=== PATIENT | female | born 1955 | race African-American/Black ===

== ENCOUNTER 2016-05-18 16:21 | Inpatient (IN) ==
[2016-05-18] MEDS ORDERED: SODIUM CHLORIDE 0.45% 1,000 ML IV SCH (18:00)
--- NOTE | 2016-05-18 18:49 | XRay Report ---
Exam: XR KUB Date: 05/18/2016 6:00 PM Indication: Anorexia Comparison: None Technical: 2 views Findings: Lung bases are unremarkable. The liver shadow and spleen shadows are faintly seen with some splenic granuloma changes. Air-fluid distention of the stomach is present. The bony structures are intact no obvious pneumoperitoneum. Metallic density superimposes the right lower quadrant measuring approximately 7.6 mm. The bony pelvis is intact with lateral marginal osteophytes present along the lumbar spine at L4. Impression: 1. Metallic foreign body in the right lower quadrant measuring 7.6 mm 2. Questionable dilated gastric air bubble with food and debris present. If further evaluation is warranted CT scan of the abdomen pelvis with IV and oral contrast may be beneficial. PROCEDURE INTERPRETED AT [facility] DEPARTMENT OF RADIOLOGY Final Report Signed by: Dr. Moses Berger
[2016-05-18 19:46] LABS: Basophils % 0.1 % (0.0-0.8); Hematocrit 36.9 VOL% (35.7-47.0); Hemoglobin 11.8 GM/DL (12.0-16.0); Immature Granulocytes % 0.3 %; Immature Granulocytes Absolute 0.03 #; Lymphocytes # 1.3 10*3/uL (1.4-4.0); Lymphocytes % 12.1 % (21.3-54.2); Mean Corpuscular Hemoglobin 29 PG (27-34); Mean Corpuscular Volume 89.1 FL (87-102); Mean Platelet Volume 10.9 FL (9.6-12.0); Monocytes # 0.7 10*3/uL (0.11-0.8); Neutrophils # 8.4 10*3/uL (1.4-7.4); Neutrophils % 80.5 % (38.7-73.9); Platelet Count 359 T/CUMM (130-400); Red Blood Count 4.14 MC/CUMM (3.8-5.5); White Blood Count 10.5 T/CUMM (4-12)
[2016-05-18 20:05] LABS: Albumin 3.9 G/DL (3.4-5.0); Bilirubin,Total 0.6 MG/DL (0.2-1.0); Calcium 10.3 MG/DL (8.5-10.1); Osmolality,Calculated 281.1 MOS/KG (273-304); Potassium 2.8 MMOL/L (3.5-5.1); Total Protein 8.4 G/DL (6.4-8.3)
--- NOTE | 2016-05-18 20:21 | Internal Med History&Physical ---
Assessment and Plan (1) Anorexia Status: Chronic Current Visit: Yes (2) Weight loss Status: Chronic Current Visit: Yes (3) Nutritional deficiency Status: Chronic Current Visit: Yes (4) Hypokalemia Status: Acute Current Visit: Yes History of Present Illness Chief complaint: weight loss History of present illness: Ms. 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 She didn't like the food changes and stopped eating the food there. She has lost about 25 pounds since then. Her family had her worked up in [facility] for cancer with unremarkable findings. After her nutritional deficiencies are addressed here in hospital, considering sending her to [facility] for help with anorexia. Consulting Dr. Oshea to rule out GI etiologies for weight loss. Also, she may need PEG tube until she recovers her willingness to eat. She prefers liquids at this point. Home Medications Medication Instructions Recorded Confirmed Type Ciprofloxacin Tab [Cipro Tab] 500 mg PO BID #14 tablet 05/15/16 05/18/16 Rx Potassium Chloride Cap/Tab [K Dur] 20 meq PO DAILY #7 tablet 05/15/16 05/18/16 Rx Allergies Allergy/AdvReac Type Severity Reaction Status Date / Time No Known Allergies Allergy Verified 05/15/16 12:59 Medical,Surgical,& Family Hx - Medical History HEENT: History of: Dental Problems (dentures upper and lower) Genitourinary: History of: Recurring Urinary Tract Infections Hematology: History of: Anemia - Surgical History Abdominal Surgeries: Surgical HX of: Colonoscopy (2017), EGD (2017) - Family History Family History: Reports;: Family Diabetes (sister), Family Hypertension (sister) - Social History Smoking Status: Never smoker Frequency of Alcohol Use: None Type of Drug Use: None Functional capacity: independent ambulation - Constitutional Constitutional: Present: anorexia, fatigue, lethargy, weight loss - Gastrointestinal Gastrointestinal: Present: early satiety Exam - Constitutional Vitals: Period Temp Pulse Resp BP Sys/Timmons Pulse Ox Last 24 Hr 98.2 F 129 18 113/77 93 General appearance: no acute distress - Head Head exam: Present: normocephalic - Eye Eye exam: Present: EOMI - Respiratory Respiratory exam: Present: clear to auscultation bilaterally - Cardiovascular Cardiovascular exam: Present: regular rate and rhythm - GI/Abdominal GI/Abdominal exam: Present: soft. Absent: psoas sign - Extremities Exam Extremities exam: Absent: edema - Neurological Exam Neurological exam: Present: alert, oriented X3 - Psychiatric Psychiatric exam: Present: normal mood - Skin Skin exam: Present: warm, dry Results - Labs CBC & BMP: 05/18/16 19:37 05/18/16 19:37 - Diagnostic Findings Procedure: KUB x-ray: report reviewed by me
[2016-05-18] MEDS: CYPROHEPTADINE 4 MG TABLET PO SCH (20:22)
[2016-05-18] MEDS ORDERED: PROMETHAZINE 25 MG/1 ML VIAL IM PRN (23:36)
[2016-05-19] MEDS: ONDANSETRON 4 MG/2 ML VIAL IV PRN ×2 (00:08→10:09)
[2016-05-19] MEDS: POTASSIUM CHLORIDE 20 MEQ TABLET PO SCH ×2 (02:48→08:39)
[2016-05-19] MEDS: SODIUM CHLORIDE 0.9% 1,000 ML IV SCH ×3 (03:03→23:18)
--- NOTE | 2016-05-19 07:15 | CT Report ---
CT of the abdomen and pelvis with intravenous and oral contrast. Indication: Anorexia. Weight loss. 60 cc Omni 350. Axial images were obtained with sagittal and coronal reconstructions. No previous studies. The heart is normal in size. The lung bases are clear. There is no pericardial or pleural effusion. The liver is low normal in size. There is fluid around the liver. There is prominent intrahepatic biliary ductal dilatation. The common hepatic duct diameter is 16 mm. Around the gallbladder, there are indistinct areas of low density. The gallbladder is not distended. The stomach is markedly distended, containing fluid, semisolid, and solid material. It extends to the pelvis, and has a craniocaudal dimension of 30 cm and a transverse dimension of 21 cm. There is no gastric wall thickening. The stomach exerts mass effect on the liver, the spleen, and the left kidney. The spleen is small. The kidneys are normally functioning and there is no hydronephrosis. The pancreas is compressed by the stomach. It is not enlarged. It appears that the first0, with relatively abrupt transition to nondistended5 the loops of small intestine are not dilated. The colon is not dilated. It contains scattered fecal material. There is a small amount of free fluid within the pelvis. The pelvic organs are relatively unremarkable. No adenopathy is seen. The abdominal aorta is of normal caliber, with mild scattered plaque in its wall. The duodenum does narrow at the level of the crossing of the SMA. Osseous structures are unremarkable. Impression: 1. Marked distention of the stomach and moderately severe distention of the first and second portions of the duodenum with an abrupt transition involving the junction of the second and third portions of the duodenum. No definite wall thickening of the duodenum is seen at this level. The amount of gastric distention is severe. Considerations would include duodenal obstruction from intrinsic mass not defined on the CT, scarring of the duodenum, or SMA syndrome. 2. Moderately severe biliary ductal dilatation. There is edema around the wall of the gallbladder which is not distended. Cholecystitis cannot be excluded. The presence of a distal biliary obstructing mass cannot be excluded. 3. Small amount of ascites. The CT exam was performed using one or more of the following dose reduction techniques: Automated exposure control, adjustment of the mA and/or kV according to patient size, or use of iterative reconstruction technique. PROCEDURE INTERPRETED AT [facility] DEPARTMENT OF RADIOLOGY Final Report Signed by: Dr. Marley Harris
[2016-05-19] MEDS ORDERED: BISACODYL 5 MG TABLET PO ONE (08:06)
[2016-05-19] MEDS: CYPROHEPTADINE 4 MG TABLET PO SCH ×2 (08:39→22:18)
[2016-05-19] MEDS: FERROUS SULFATE 325 MG TABLET PO SCH ×2 (08:39→22:17)
[2016-05-19] MEDS ORDERED: PANTOPRAZOLE 40 MG TABLET PO SCH (09:00)
--- NOTE | 2016-05-19 10:18 | Gastrointestinal Consult Note ---
Assessment and Plan (1) Weight loss Status: Chronic Assessment and plan: 05/19- pd weight loss over past several months with loss of appetite, abd bloating, GERD symptoms. Recent workup at [facility]. CT of abdomen findings noted. Obtain records from [facility] for recent endoscopy. Plan and addendum to follow by Dr Oshea. Current Visit: Yes History of Present Illness Chief complaint: Weight loss History of present illness: Ms. Schneider is a 61 year old female who presented to the clinic to see Dr Negron for continued weight loss. Pt states that she began losing weight back in the fall of last year. She initially states her appetite slowly decreased and she just didnt have the desire to eat. She states that in January she also got a stomach virus and states this worsened her weight loss. Pt states that when she tries to eat she feels like it "wont go down". She denies any dysphagia or odonyphagia with this. States she is able to swallow pills, liquids and solids without any difficulty however after she eats several bites she feels full and bloated. She states that she has had no melena, hematochezia, nausea or vomitnig. She denies any other recent illnesses. She denies family history of colon cancer. She denies abdominal pain. She does report that she has some dyspepsia with eating including feeling of "acid" in the back of her throat and bloating when she eats. She states she was seen in [place] for an EGD and recently at [facility] by Dr Moise for endoscopy work up. We will obtain these records from [facility] for further review. CT of abdomen noted with marked distention of stomach with severe distention of first and second portions of duodenum, abrupt transition at junction of second and third portions duodenum, severe gastric distention, biliary ductal dilation, gallbladder edema. BUN/Cr ratio 41, calcium 10.3, potassium 2.8. Home Medications Medication Instructions Recorded Confirmed Type Ciprofloxacin Tab [Cipro Tab] 500 mg PO BID #14 tablet 05/15/16 05/18/16 Rx Potassium Chloride Cap/Tab [K Dur] 20 meq PO DAILY #7 tablet 05/15/16 05/18/16 Rx Allergies Allergy/AdvReac Type Severity Reaction Status Date / Time No Known Allergies Allergy Verified 05/15/16 12:59 Medical,Surgical,& Family Hx - Medical History HEENT: History of: Dental Problems (dentures upper and lower) Genitourinary: History of: Recurring Urinary Tract Infections Hematology: History of: Anemia - Surgical History Abdominal Surgeries: Surgical HX of: Colonoscopy (2017), EGD (2017) - Family History Family History: Reports;: Family Diabetes (sister), Family Hypertension (sister) - Social History Smoking Status: Never smoker Frequency of Alcohol Use: None Type of Drug Use: None 12 point system: reviewed and no additional remarkable complaints except as stated - Constitutional Constitutional: Present: as per HPI, anorexia, weight loss - EENT Eyes: Present: as per HPI Ears: Present: as per HPI Nose, mouth and throat: Present: as per HPI - Cardiovascular Cardiovascular: Present: as per HPI - Respiratory Respiratory: Present: as per HPI - Gastrointestinal Gastrointestinal: Present: as per HPI, bloating, dyspepsia, heartburn - Genitourinary Genitourinary: Present: as per HPI - Musculoskeletal Musculoskeletal: Present: as per HPI - Neurological Neurological: Present: as per HPI - Psychiatric Psychiatric: Present: as per HPI - Endocrine Endocrine: Present: as per HPI - Hematologic/Lymphatic Hematologic/Lymphatic: Present: as per HPI Exam - Constitutional Vitals: Period Temp Pulse Resp BP Sys/Timmons Pulse Ox Last 24 Hr 96.8 F-98.2 F 94-129 18-20 113-138/68-84 93-98 General appearance: no acute distress, under weight - Head Head exam: Present: normal inspection, normocephalic - Eye Eye exam: Present: other (lids and conjunctiva). Absent: scleral icterus - ENT ENT exam: Present: normal exam, normal oropharynx - Neck Neck exam: Present: normal inspection - Respiratory Respiratory exam: Present: clear to auscultation bilaterally. Absent: rales, rhonchi, wheezes - Cardiovascular Cardiovascular exam: Present: regular rate and rhythm. Absent: diastolic murmur , JVD, systolic murmur - GI/Abdominal GI/Abdominal exam: Present: normal bowel sounds, soft. Absent: ascites, distended, mass, organomegaly, tenderness - Extremities Exam Extremities exam: Present: normal inspection, full ROM - Back Exam Back exam: Present: normal inspection - Neurological Exam Neurological exam: Present: alert, oriented X3 - Psychiatric Psychiatric exam: Present: normal affect, normal mood - Skin Skin exam: Present: normal color, warm, dry Results - Labs CBC & BMP: 05/18/16 19:37 05/18/16 19:37 Lab Results: I have reviewed the past 24 hour labs - Diagnostic Findings Procedure: KUB x-ray: report reviewed by me, CT Abdomen and Pelvis: report reviewed by me
[2016-05-19] MEDS: POTASSIUM CHLORIDE RIDER 10 MEQ in PREMIX 1 EACH IV PRN ×5 (11:15→15:25)
--- NOTE | 2016-05-19 13:16 | General Surgery Consult Note ---
Assessment and Plan - Time spent with patient Time spent with patient: Greater than 30 minutes (1) Duodenal obstruction Status: Acute Assessment and plan: This does not appear to be acute and appears to be more of a subacute or chronic finding. The etiology of this is unclear. Possibilities of been raised on CT scan by radiology as being from SMA syndrome or tumor wall mass is not noted on CT scan. She did have endoscopy with negative biopsies. Certainly malignancy is still a consideration especially in light of her extensive weight loss. Peptic ulcer disease with scarring causing a stricture in this location would also be a possibility that this is a bit distal to where I would expect this to occur. This is more proximal than I would expect for SMA syndrome. I feel that she will need surgery to address this problem. Her stomach is massively distended and I'm going to place a nasogastric tube. We need to get her stomach empty and it would be unsafe to give anesthesia with her stomach so full. She is certainly going to be at risk for postoperative gastric atony. We probably will not be able to establish whether this is benign or malignant and less she has elevated tumor markers preoperatively. I would anticipate being able to do surgery in the next couple of days after we decompressed her stomach. I will leave it up to Dr. Cedeño regarding upper endoscopy. Apparently she recently had endoscopy about a month ago at [facility]. Current Visit: Yes History of Present Illness Chief complaint: weight loss History of present illness: Ms. Schneider is a 61 year old female Who for the last 3-4 months has had progressive weight loss and has become cachectic. She has minimal mild poorly localized abdominal pain. She does not know of any aggravating or alleviating factors. She has nausea and vomiting occasionally. She has an inability to eat and has been avoiding food because of worry about nausea and vomiting. She is undergone a workup at [facility] which is included upper and lower endoscopy. Upper endoscopy apparently showed a narrowing at the junction of second and third portion of the duodenum and biopsies were taken which were benign. I did review her records from [facility] that we have obtained. She had a CT scan at our hospital which shows massive dilatation of the stomach and first portion of the duodenum and a transition point at the C-loop of the duodenum. Home Medications Medication Instructions Recorded Confirmed Type Ciprofloxacin Tab [Cipro Tab] 500 mg PO BID #14 tablet 05/15/16 05/18/16 Rx Potassium Chloride Cap/Tab [K Dur] 20 meq PO DAILY #7 tablet 05/15/16 05/18/16 Rx Allergies Allergy/AdvReac Type Severity Reaction Status Date / Time No Known Allergies Allergy Verified 05/15/16 12:59 Medical,Surgical,& Family Hx - Medical History HEENT: History of: Dental Problems (dentures upper and lower) Genitourinary: History of: Recurring Urinary Tract Infections Hematology: History of: Anemia - Surgical History Abdominal Surgeries: Surgical HX of: Colonoscopy (2017), EGD (2017) - Family History Family History: Reports;: Family Diabetes (sister), Family Hypertension (sister) - Social History Smoking Status: Never smoker Frequency of Alcohol Use: None Type of Drug Use: None - Constitutional Constitutional: Present: anorexia, weight loss. Absent: chills, fever(s) - EENT Nose, mouth and throat: Absent: dysphagia - Cardiovascular Cardiovascular: Absent: chest pain at rest, chest pain with activity, dyspnea, dyspnea on exertion, syncope - Respiratory Respiratory: Absent: cough, dyspnea, hemoptysis, dyspnea on exertion - Gastrointestinal Gastrointestinal: Present: abdominal pain, bloating, nausea, vomiting. Absent: cramping, diarrhea, heartburn, hematemesis, hematochezia, jaundice - Genitourinary Genitourinary: Absent: hematuria - Musculoskeletal Musculoskeletal: Absent: back pain - Neurological Neurological: Absent: focal weakness, syncope - Endocrine Endocrine: Absent: polyuria Hematologic/Lymphatic: Absent: easy bruising Exam - Constitutional Vitals: Period Temp Pulse Resp BP Sys/Timmons Pulse Ox Last 24 Hr 96.8 F-98.2 F 94-129 18-20 109-138/58-84 93-100 General appearance: no acute distress, cachectic - Head Head exam: Present: normocephalic - Eye Eye exam: Absent: scleral icterus - ENT Mouth exam: Present: normal voice - Neck Neck exam: Present: trachea midline. Absent: lymphadenopathy, tenderness, thyromegaly - Respiratory Respiratory exam: Present: clear to auscultation bilaterally. Absent: accessory muscle use - Cardiovascular Cardiovascular exam: Present: RRR - GI/Abdominal GI/Abdominal exam: Present: normal bowel sounds, distended, firm, soft. Absent : ascites, guarding, mass, Akins's sign, tenderness, rebound - Extremities Exam Extremities exam: Absent: edema - Back Exam Back exam: Present: normal inspection. Absent: vertebral tenderness - Neurological Exam Neurological exam: Present: alert, oriented X3. Absent: motor sensory deficit Speech: Present: normal - Skin Skin exam: Present: normal color Results - Labs CBC & BMP: 05/18/16 19:37 05/18/16 19:37 Lab Results: I have reviewed the past 24 hour labs - Diagnostic Findings Procedure: CT Abdomen and Pelvis: image reviewed by me, report reviewed by me
--- NOTE | 2016-05-19 20:19 | Internal Med Progress Note ---
Assessment and Plan (1) Anorexia Status: Chronic Current Visit: Yes (2) Weight loss Status: Chronic Current Visit: Yes (3) Nutritional deficiency Status: Chronic Current Visit: Yes (4) Hypokalemia Status: Acute Current Visit: Yes (5) Duodenal obstruction Status: Chronic Current Visit: Yes Internal Medicine - PN: Subj Interval history: Ms. 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 She didn't like the food changes and stopped eating the food there. She has lost about 25 pounds since then. Her family had her worked up in [place] for cancer with uncertain findings. Requested records during clinic visit at [facility]. She came to clinic to [facility] in late April, then came back Wednesday of this week. She was admitted directly to hospital. She had lost five pounds in only a couple weeks. Had ordered KUB with suspicious findings, then ordered CT abdomen/pelvis. CT indicated duodenal obstruction, and Dr. Luis A III was consulted to further evaluate. She was placed on NG tube to wall suction and was feeling better when seen on rounds. Have ordered PICC line placement for TPN. She needs nutritional support. Rocephin started this evening to give coverage until surgical exploration can take place. This patient's history is unclear. She reported in clinic that workup in [facility] was unremarkable, and nothing found, except difficulty passing colonoscope beyond hepatic flexure, and colonoscopy discontinued. She also reported that she avoided certain foods because of gas, but denied acid indigestion. She said in clinic she could eat solids, but preferred liquids, and labs in clinic were surprisingly better than expected. Family with her in clinic reported that she was always a "picky" eater, and her normal weight for years was about 115 pounds. She came across as willfully anorexic to some extent. However, after receiving results of current CT, this case is surgical. She reports the trouble began when the menu changed in the school cafeteria during summer school last summer. This may have been coincidence. CT findings indicate a chronic problem. CT also indicates gallbladder disease. Unclear why this wasn't seen in previous workup. Optimistic that with surgery, this patient stands a chance. She has no other chronic illnesses. Sinus tachycardia likely a symptom of underlying bowel obstruction as indicated by CT. Also, she came in dehydrated. Metoprolol tartrate started tonight. Exam (Progress Note) - Constitutional Vitals: Period Temp Pulse Resp BP Sys/Timmons Pulse Ox Last 24 Hr 96.8 F-97.9 F 94-125 18-20 109-132/58-78 95-100 General appearance: no acute distress (appears more comfortable since NG tube suction started), under weight, cachectic - Respiratory Respiratory exam: Present: clear to auscultation bilaterally. Absent: rales, rhonchi, wheezes - Cardiovascular Cardiovascular exam: Present: tachycardia - GI/Abdominal GI/Abdominal exam: Present: other (improved abdominal softness with decompression (NG tube suction)) - Extremities Exam Extremities exam: Absent: edema - Neurological Exam Neurological exam: Present: alert, oriented X3 - Psychiatric Psychiatric exam: Present: normal mood - Skin Skin exam: Present: warm, dry Results - Labs CBC & BMP: 05/18/16 19:37 05/19/16 19:04 - EKG EKG shows: tachycardia - Diagnostic Findings Procedure: KUB x-ray: report reviewed by me, CT Abdomen and Pelvis: report reviewed by me (duodenal obstruction)
[2016-05-19] MEDS: cefTRIAXone 1,000 MG in SODIUM CHLORIDE 0.9% 100 ML IV SCH (23:10)
[2016-05-20] MEDS ORDERED: METOPROLOL TARTRATE 5 MG/5 ML VIAL IV PRN (01:03)
[2016-05-20 02:31] LABS: Basophils % 0.1 % (0.0-0.8); Hematocrit 35.9 VOL% (35.7-47.0); Hemoglobin 11.1 GM/DL (12.0-16.0); Immature Granulocytes % 1.2 %; Immature Granulocytes Absolute 0.19 #; Lymphocytes # 0.4 10*3/uL (1.4-4.0); Lymphocytes % 2.2 % (21.3-54.2); Mean Corpuscular HGB Conc 30.9 GM/DL (32-36); Mean Corpuscular Hemoglobin 29 PG (27-34); Mean Corpuscular Volume 93.2 FL (87-102); Mean Platelet Volume 11.8 FL (9.6-12.0); Monocytes # 0.9 10*3/uL (0.11-0.8); Monocytes % 5.4 % (1.7-12.7); Neutrophils # 14.3 10*3/uL (1.4-7.4); Neutrophils % 91.1 % (38.7-73.9); Platelet Count 213 T/CUMM (130-400); Red Blood Count 3.85 MC/CUMM (3.8-5.5); Red Cell Distribution Width 17.4 % (9.3-17.3); White Blood Count 15.7 T/CUMM (4-12)
[2016-05-20 02:34] LABS: Calcium 8.8 MG/DL (8.5-10.1); Magnesium 2.1 MG/DL (1.8-2.4); Osmolality,Calculated 294.3 MOS/KG (273-304); Potassium 3.6 MMOL/L (3.5-5.1)
[2016-05-20 03:42] LABS: Lymphocytes 3 % (20-55); Segmented Neutrophils 95 % (50-85)
[2016-05-20 03:43] LABS: Platelet Estimate Adequate; Target Cells Few
[2016-05-20] MEDS ORDERED: METOPROLOL TARTRATE 5 MG/5 ML VIAL IV SCH (06:00)
[2016-05-20] MEDS: SODIUM CHLORIDE 0.9% 1,000 ML IV SCH ×2 (06:06→16:47)
[2016-05-20] MEDS: PANTOPRAZOLE 40 MG VIAL IV SCH (08:42)
[2016-05-20] MEDS ORDERED: GLUCAGON 1 MG VIAL IM PRN (08:44)
[2016-05-20] MEDS ORDERED: DEXTROSE 50% 25 GM/50 ML VIAL IV PRN (08:44)
--- NOTE | 2016-05-20 08:45 | Event Note ---
She feels much better since the NG tube was placed. I have discussed surgery once again today. I discussed her case with Dr. Negron and also with Dr. Cedeño. All agree that surgery would be needed to relieve her obstruction. Her CA-19-9 has returned elevated and probably represents a malignancy which is unresectable. This is consistent with her 40 pound weight loss. I discussed the surgery in detail along with the risks with her and her family. They are considering this this morning. I will go ahead and put her on the schedule for this afternoon. They understand that she is at increased risk for complications because of what is probably an underlying malignancy and severe underlying malnutrition and deconditioning. I do not see a good option other than surgical bypass her GI obstruction. I did explain if we did see a tumor that appeared to be resectable then we could possibly undertake that at this time. They understand that the primary role of surgery is to relieve her obstruction and palliate her symptoms and get her back where she can eat. We might place a feeding tube is well.
--- NOTE | 2016-05-20 09:17 | Oncology Consult Note ---
History of Present Illness History of present illness: Ms. Schneider is a 61 year old female admitted with what appears to be a fairly extensive GI malignancy. She is not a very good historian. I discussed her case with Dr. Negron. Dr. Luis A Jean has been consulted. She has had prolonged anorexia. She is emaciated and cachectic. She has a sister Tanisha Wolfes node and ascites. She is not particularly tender. I have discussed her case with Dr. Luis A Jean. He is proceeding with a diagnostic laparoscopy/laparotomy. The patient is very sick and not a good historian because she is emaciated, cachectic and debilitated. Past medical history: Allergies: No known allergies Social history: She does not use alcohol or tobacco Family history of malignancy is unknown ROS please note that this patient is a poor historian and some of this information could be an accurate. Gen.: She has been chronically ill for the last 6 months with anorexia and has gradually worsened. Eyes: No history of chronic disease, infections or visual loss. ENT: No history of chronic infections, epistaxis, chronic sore throat Lungs: No history of asthma, emphysema, hemoptysis, chronic pleurisy or long- term or chronic infections Cardiovascular: No history of angina, coronary artery disease, congestive heart failure, cardiovascular surgery or DVT/VTE GI: Increasing anorexia and weight loss without abdominal pain and without jaundice. : No history of icteric urine no history of kidney stones, chronic kidney infections or hematuria. Musculoskeletal: No history of chronic bone or joint pain or focal muscle atrophy or bone or joint deformity. Neurologic: No history of seizures, convulsions or paralysis. Psychiatric: No history of chronic psychiatric illness or psychiatric medications. Lymphatic: No history of significant or long-term lymphadenopathy Hematologic: No history of anemia, bleeding disorders or blood dyscrasias or long-term elevation or depression white cell count or petechiae. Skin: No history of chronic skin infections or rashes or significant skin lesions. Physical examination: General: The patient is emaciated, cachectic and malnourished with temporal muscle wasting. Eyes: Her eyes are sunken she has normal lids and conjunctivae and there is no icterus. ENT: Her teeth are in poor repair. Her oral mucosa and pharynx are normal. Neck: Her trachea is midline. Her hearing is normal and she has no neck masses. Lungs: Breath sounds are slightly coarse without rubs, rales or rhonchi. Her chest moves symmetrically with respiration. Cardiovascular: Her heart rhythm is regular without murmur, gallop or rub. There is no jugular venous distention, clubbing, cyanosis or edema. Abdomen: There are no discrete abdominal masses but her abdomen is distended and she appears to have ascites. There is no significant tenderness however. Musculoskeletal: She has generalized muscle wasting. There is no focal muscle atrophy or bone or joint deformity. Neuro Neurologic: Cranial nerves II through XII are intact. There are no obvious focal neurologic deficits. Nodes: I palpate no cervical, supraclavicular, axillary or submandibular adenopathy. Skin: I find no significant skin lesions although she has lost the leg and use on her nails. The patient's CBC includes a hemoglobin of 11.1 with a white cell count 15,700 with an absolute neutrophil count of 14,300. Her platelet count is 213,000. Her CEA level is 6.5 and her CA-19-9 is 949.7. Her comprehensive metabolic profile includes a serum calcium of 10.3 with a normal serum albumin of 3.9. Her transaminases and alkaline phosphatase are normal. I suspect the patient has an abdominal malignancy of some type. On reviewing her CT of the abdomen, there is suggestion of an upper abdominal mass-effect. The CT is read by radiology as demonstrating distention of the stomach and moderately severe distention of the first and second portions of the duodenum along with severe biliary ductal dilatation and changes suggestive of duodenal obstruction. 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 See the operative report for details. Pathology is pending. Home Medications Medication Instructions Recorded Confirmed Type Ciprofloxacin Tab [Cipro Tab] 500 mg PO BID #14 tablet 05/15/16 05/18/16 Rx Potassium Chloride Cap/Tab [K Dur] 20 meq PO DAILY #7 tablet 05/15/16 05/18/16 Rx Allergies Allergy/AdvReac Type Severity Reaction Status Date / Time No Known Allergies Allergy Verified 05/15/16 12:59 Medical,Surgical,& Family Hx - Medical History HEENT: History of: Dental Problems (dentures upper and lower) Genitourinary: History of: Recurring Urinary Tract Infections Hematology: History of: Anemia - Surgical History Abdominal Surgeries: Surgical HX of: Colonoscopy (2017), EGD (2017) - Family History Family History: Reports;: Family Diabetes (sister), Family Hypertension (sister) - Social History Smoking Status: Never smoker Frequency of Alcohol Use: None Type of Drug Use: None Exam - Constitutional Vitals: Period Temp Pulse Resp BP Sys/Timmons Pulse Ox Last 24 Hr 97.2 F-99 F 117-128 18-20 109-126/58-74 95-100 Results - Labs CBC & BMP: 05/20/16 16:00 05/20/16 01:23 Quality Measures - VTE Contraindication to Pharmacological VTE Prophylaxis: High Risk of Bleeding
[2016-05-20] MEDS ORDERED: LACTATED RINGERS 1,000 ML IV SCH (09:30)
--- NOTE | 2016-05-20 09:37 | Gastrointestinal Progress Note ---
Assessment and Plan (1) Weight loss Status: Chronic Assessment and plan: 05/20-NG tube placed with moderate output. Endoscopy reports from [place] noted. Luis A has consulted and tentative exp lap this afternoon. Plan and addendum to follow by Dr Oshea. /-25 pd weight loss over past several months with loss of appetite, abd bloating, GERD symptoms. Recent workup at [place] and [facility]. CT of abdomen findings noted. Obtain records from [place] for recent endoscopy. Plan and addendum to follow by Dr Oshea. Current Visit: Yes Gastroenterology - PN: Subj Interval history: CC: Weight loss Patient is seen awake and alert sitting up in bed with family at side. Patient states she had an uneventful night. She does verbalize some relief after NG tube placement with moderate output noted. Dr. Bryan is consulted with patient as well as Dr. Gunn. Pt endoscopy records noted from [place] with last EGD in February with negative pathology with narrowing at duodenum and incomplete colonoscopy. Tentatively patient will go later today for exploratory surgery. Abdomen is soft, nontender. ROS: Denies SOB or chest pain Exam (Progress Note) - Constitutional Vitals: Period Temp Pulse Resp BP Sys/Timmons Pulse Ox Last 24 Hr 97.2 F-99 F 117-128 18-20 109-126/58-74 95-100 General appearance: normal weight, no acute distress - Head Head exam: Present: normal inspection, normocephalic - Eye Eye exam: Present: other (Lids and conjunctivae unremarkable). Absent: scleral icterus - ENT ENT exam: Present: normal exam, normal oropharynx - Neck Neck exam: Present: normal inspection - Respiratory Respiratory exam: Present: clear to auscultation bilaterally. Absent: rales, rhonchi, wheezes - Cardiovascular Cardiovascular exam: Present: regular rate and rhythm. Absent: diastolic murmur , JVD, systolic murmur - GI/Abdominal GI/Abdominal exam: Present: normal bowel sounds, distended, soft. Absent: ascites, mass, organomegaly, tenderness - Extremities Exam Extremities exam: Present: normal inspection, full ROM - Back Exam Back exam: Present: normal inspection - Neurological Exam Neurological exam: Present: alert, oriented X3 - Psychiatric Psychiatric exam: Present: normal affect, normal mood - Skin Skin exam: Present: normal color, warm, dry Results - Labs CBC & BMP: 04/05/17 01:23 05/20/16 01:23 Lab Results: I have reviewed the past 24 hour labs
--- NOTE | 2016-05-20 09:40 | Physician Query Form ---
CLICK EDIT DOCUMENT TO SELECT QUERY ANSWER --> OK --> SIGN Rosario Stafford RN Clinical Gizzard Peeler W) [phone] (f) [phone] [email or web address] PROVIDERS: Make your selection(s) from the choices in EACH section by typing an "x" and enter comments in the comment section. Please use your independent medical judgment in providing your response. This request does not imply that any particular answer is desired or expected. CLINICAL INDICATORS: (Providers should not edit this section) Height: 5ft 2in Weight: 84 lbs Anesthesiologist Physician BMI: 15.4 Air Battle Manager notes:Loss of subcutaneous fat. Loss of muscle massTemporal and clavicular wasting noted. Other clinical notes: chronic anorexia. Based on the above, which following choice most accurately represents the patient's nutritional status? (x ) Malnutrition ( ) mild ( ) moderate (x ) severe ( x) Protein calorie malnutrition ( ) mild ( ) moderate (x ) severe (x ) Emaciation due to malnutrition ( ) Nutritional marasmus ( x) Cachexia ( ) Underweight ( ) No nutritional deficiency ( ) Other, please specify: ( ) Clinically unable to determine Mild Malnutrition (BMI < 18.5, % Normal Body Weight 85-95%) Moderate Malnutrition (BMI < 17, % Normal Body Weight 75-85%) Severe Malnutrition (BMI < 16, % Normal Body Weight < 75%) Source: Callie COMMENTS: Use of terms such as suspected, likely, or probable (associated with a specific diagnosis that is being evaluated, monitored, or treated as if it exists) are acceptable and can be restated in the discharge summary if not ruled out. MTDD
--- NOTE | 2016-05-20 09:49 | EKG Report ---
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
[2016-05-20] MEDS: AMIODARONE 200 MG TABLET PO SCH ×2 (10:39→21:30)
[2016-05-20] MEDS: metroNIDAZOLE INJ 500 MG in PREMIX 1 EACH IV SCH ×2 (10:39→17:37)
[2016-05-20] MEDS: METOPROLOL TARTRATE 5 MG/5 ML VIAL IV SCH ×4 (10:39→21:32)
[2016-05-20] MEDS ORDERED: ceFAZolin 1,000 MG VIAL ONE (13:00)
[2016-05-20] MEDS ORDERED: TISSUE ADHESIVE 1 EACH APPLICATOR TOP ONE (15:21)
[2016-05-20 15:24] LABS: ABG Base Excess 3.2 MMOL/L (-2.5-2.5); ABG HCO3 27.3 MMOL/L (20-26); ABG PCO2 33.9 MM HG (35-48); ABG PH 7.499 (7.35-7.45); ABG TCO2 24.5 MMOL/L (23-27); Glucose Heart Surgery 98 MG/DL (74-106); Hematocrit Heart Surgery 24.8 PERCENT (37-47); Potassium Heart/CVR 2.9 MMOL/L (3.5-5.1)
--- NOTE | 2016-05-20 15:40 | Operative Note ---
Date of procedure: 05/20/16 Pre-op diagnosis: duodenal obstruction Post-op diagnosis: same (widely metastatic cancer of unknown primary) Procedure: #1 partial gastric resection of mid body of stomach removing necrotic portion 3 x 5 cm #2 stapled gastrojejunostomy #3 loop colostomy at hepatic flexure #4 Debbie gastrostomy Findings and technique: After informed consent was obtained and extensive discussions had with the patient and her family about the need for palliative surgery and the fact that she likely had unresectable cancer. They elected to go ahead with surgery with palliation as the primary goal. Patient was brought to the operating room and a central line was placed by anesthesia. The patient' s abdomen was then prepped and draped in usual sterile fashion after induction with general anesthesia. The abdomen was opened through a midline incision and the patient was noted to have an ischemic appearing stomach just beneath the incision and the stomach was distended about the size of a basketball. Stomach displaced the liver to the right and extended to well below the umbilicus. There was an area of necrosis of the stomach that was only able to be visualized after I decompressed the stomach with a small scab gastrostomy and insertion of the suction cannula. I removed 2 L of liquid from the stomach and was able to then visualize the stomach see that there was a 3 x 5 cm area of necrosis in the left upper quadrant over the anterior aspect of the stomach. This had not perforated. I then explored the rest of the abdomen where there was prostatic implants in multiple locations all over small bowel and colon and over the mesenteric and peritoneal surfaces. There was a bulky mass at the mid transverse colon which appeared to be obstructive. There was an obstruction at the midportion of the duodenum. It was unclear if this tumor came from the pancreas or from the colon. I biopsied one of the metastatic implants and this showed poorly differentiated adenocarcinoma. The primary site was unclear. I did not feel that bypassing her duodenal obstruction would be worthwhile if we did not address the colonic obstruction. I wanted to limit the amount of resection in this patient with limited life expectancy. I elected to place a right upper quadrant colostomy and I mobilized the hepatic flexure. The colon was not mobile in the left upper quadrant or in the midline. The right colon was somewhat mobile so that I could bring it up to the anterior abdominal wall were circular incision was made in the defect made through the fascia in the right upper quadrant. I performed a partial resection of the anterior aspect of the stomach where it was necrotic. This was secured in [place] and a TA 90 stapler passed beneath the necrotic area wedging out the unhealthy appearing stomach. The remainder of the stomach once it was decompressed appeared to be viable. I then did a stapled gastrojejunostomy along the greater curve of the stomach. The stomach had a healthy appearance in this location. This was done in a side to side fashion with a SAIRA stapling device and TA stapler to close the openings in the ends of the bowel. This was reinforced with a few Lembert sutures. I then placed a gastrostomy tube because the large size of the stomach that we would want to keep decompressed. I anticipate gastric atony postoperatively. This will also make her more comfortable and we can get her nasogastric tube out this was done with a 20 Luxembourgish tube brought in through a left upper quadrant stab incision and introduced into the mid body of the stomach and since secured with a pursestring suture. This was secured to the skin as well. The midline wound was closed with a running #1 PDS suture after he didn't additional biopsy for permanent sections and midline fascia and skin closed. The colostomy was matured to the skin. Obviously her prognosis is extremely poor. I did call her family intraoperatively with the findings and to get permission to go ahead and do the colostomy which I felt was necessary to palliate her symptoms. Anesthesia: GETA Surgeon / Physician: Kayden Gunn III. Estimated blood loss: minimal Specimens: other (metastatic implants) Condition: stable Disposition: ICU Results - Labs CBC & BMP: 05/20/16 01:23 05/20/16 01:23 Discharge Plan - Discharge Medications No Action Potassium Chloride Cap/Tab [K Dur] 20 meq PO DAILY #7 tablet Ciprofloxacin Tab [Cipro Tab] 500 mg PO BID #14 tablet - Follow Up or Referral - Forms/Instructions
[2016-05-20] MEDS ORDERED: PROPOFOL 1,000 MG/100 ML BOTTLE IV ONE (15:41)
[2016-05-20 15:55] LABS: Amorphous Crystals,Urine Occasional /HPF (Few); Apearance,Urine CLOUDY (Clear); Bacteria,Urine Occasional /HPF (Few); Bilirubin,Urine Negative (Negative); Blood, Urine Small mg/dL (Negative); Glucose,Urine (UA) Negative (Negative); Ketones,Urine 20 mg/dL (Negative); Mucus,Urine Occasional /LPF (Occasional); Nitrite,Urine Negative (Negative); Protein,Urine 30 MG/DL; RBC,Urine 1 /HPF (0-4); Squamous Epithelial Cell,Urine Occasional /HPF (0-10); Urine Color Yellow (Yellow); Urine Specific Gravity 1.027 (1.001-1.035); Urine Urobilinogen < 2.0 EU/DL (0.2-1.0); WBC,Urine 3 /HPF (0-6)
--- NOTE | 2016-05-20 15:55 | Anesthesia ---
Anesthesia Post OP - Post Ansesthetic Evaluation Patient seen in post op: Yes Resp: within normal limits (pt remains ventilated) CV: within normal limits Mental: within normal limits (pt remains sedate) Temp: within normal limits Mcso-Ln-Luhwfjrun: within normal limits Nausea and Vomiting: within normal limits Pain: within normal limits
[2016-05-20] MEDS ORDERED: PHENYLEPHRINE DRIP 40 MG/250 ML PREMIX IV ONE (15:56)
[2016-05-20] MEDS ORDERED: fentaNYL 100 MCG/2 ML VIAL ONE (15:58)
[2016-05-20] MEDS ORDERED: SEVOFLURANE 1 UNIT/15 MINUTE INH ONE (15:58)
[2016-05-20] MEDS ORDERED: ALBUMIN 5% 12.5 GM/250 ML VIAL IV ONE (15:58)
[2016-05-20] MEDS ORDERED: LACTATED RINGERS 2,000 ML IV ONE (15:59)
[2016-05-20] MEDS ORDERED: SODIUM CHLORIDE 0.9% 1,000 ML IV ONE (15:59)
[2016-05-20] MEDS ORDERED: MIDAZOLAM 2 MG/2 ML VIAL ONE (15:59)
[2016-05-20] MEDS ORDERED: SODIUM CHLORIDE 0.9% 100 ML IV ONE (15:59)
[2016-05-20 16:11] LABS: ABG Base Excess 3.1 MMOL/L (-2.5-2.5); ABG HCO3 24.5 MMOL/L (20-26); ABG Oxygen Saturation 99.2 % (95-100); ABG PCO2 26.9 MM HG (35-48); ABG PH 7.578 (7.35-7.45); ABG PO2 283.7 MM HG (80-95); ABG TCO2 25.4 MMOL/L (23-27)
[2016-05-20 16:13] LABS: Hematocrit 27.7 VOL% (35.7-47.0); Hemoglobin 8.8 GM/DL (12.0-16.0)
--- NOTE | 2016-05-20 16:17 | XRay Report ---
XR chest 1V portable Indication: SOB Comparison: None Technique: Single frontal view of the chest Findings: Right-sided central venous catheter tip projects over the mid right atrium. The endotracheal tube tip approaches the mary. Recommend retraction by 2 to 3 cm. Mild elevation of the left hemidiaphragm. Chronic change of the lungs present. No focal consolidation, pleural effusion, or pneumothorax. Osseous and surrounding soft tissue structures demonstrate no acute abnormality. Nonaggressive appearing sclerotic lesion within the medial proximal humeral metaphysis. IMPRESSION: As above. PROCEDURE INTERPRETED AT [facility] DEPARTMENT OF RADIOLOGY Final Report Signed by: Dr Jimbo Chen
[2016-05-20] MEDS ORDERED: PHENYLEPHRINE DRIP 40 MG/250 ML PREMIX IV SCH (16:30)
[2016-05-20] MEDS: MORPHINE 2 MG/1 ML SYRINGE IV PRN ×2 (16:46→19:52)
[2016-05-20] MEDS: PROPOFOL 1,000 MG/100 ML BOTTLE IV SCH (16:47)
[2016-05-20] MEDS: FAT EMULSION 20% IV SCH (16:59)
[2016-05-20] MEDS ORDERED: TRACE ELEMENTS (5) 1 ML, MULTIVITAMIN INJ 10 ML in AMINO ACIDS/DEXT/LYTES 4.25-5% 2,000 ML IV SCH (17:00)
--- NOTE | 2016-05-20 18:27 | Pulmonology Consult Note ---
History of Present Illness Chief complaint: Mechanical ventilation. Inoperable colon cancer. History of present illness: Ms. Schneider is a 61 year old black female whom I been asked to see in pulmonary consultation for management of mechanical ventilation. This patient was admitted with a history of weight loss to began last summer. She has lost about 25 pounds. Her records indicate that her family had her worked up in [place] and in [place] for cancer and there were no remarkable findings.She was seen in GI consultation here at [facility] by Dr. Abel. CT of the chest showed distention of the stomach and moderately severe distention of first and second portions of the duodenum. She also had moderately severe biliary ductal dilatation. There is edema around the wall of a nondistended dder. The patient has a small amount of ascites. 05/20/2016 the patient had abdominal surgery. She had a duodenal obstruction secondary to widely metastatic cancer of unknown primary. She had a partial gastric resection of the mid body of the stomach to which remove necrotic tissue. She had a stable gastroduodenoscopy. This was followed by a loop colostomy at the hepatic flexure and a Debbie gastrotomy. The patient is now postop and she is on mechanical ventilation. The remainder of the review of systems is negative. Allergies. None Home medicines. See below Present medicines. See below Past history. Anemia. Recurrent urinary tract infections. Family history. Sister had diabetes and high blood pressure Social history. Patient never smoked. She does not use alcohol. She worked in a [employer]. Chest x-ray. 05/20/2016. My interpretation. Normal-sized heart. Benign calcifications both hilar areas pulmonary arteries are normal. Mediastinum appears to be normal. There is a slight increase in interstitial markings in the right perihilar area and inferior to the right hilum. There are a few increased interstitial markings in the left perihilar area. No mass. No infiltrates. No heart failure. ABGs. Mechanical ventilation. PH 7.58, PCO2 27, PO2 283 and bicarb 24.5 Lab. Urine no evidence of infection. CA-19-9 antigen is elevated at 949.7. CEA is elevated 6.5. Electrolytes are normal. Creatinine is 1.1. BUN is 58. H&H is 8.8/27.7 white count is 15,791 segs and platelets are 213,000. Labs been reviewed. Medicines have been reviewed. Physical exam. Vital signs. See below Chest. Clear Heart. No gallop Abdomen postop Lower extremities. Nothing to suggest deep venous thrombophlebitis. Neck. Symmetrical with no meningismus. Lymphatics. No submandibular cervical supraclavicular or epitrochlear adenopathy. Arterial. Carotid upstroke is fair upper extremity pulses are palpable lower extremity pulses nonpalpable. The remainder of the physical exam is noncontributory. Impression. 1. Postop abdominal surgery. Inoperable metastatic cancer of undetermined etiology. See op report. 2. Postop mechanical ventilation. 3. See past history Plan. 1. Continue present medicines 2. Mechanical ventilation weaning protocol 3. Mechanical ventilation physical therapy protocol 4. Deep venous thrombophlebitis prevention protocol 5. Proton pump inhibitor protocol. 6. Daily chest x-ray, ABGs and lab. 7. See order Home Medications Medication Instructions Recorded Confirmed Type Ciprofloxacin Tab [Cipro Tab] 500 mg PO BID #14 tablet 05/15/16 05/18/16 Rx Potassium Chloride Cap/Tab [K Dur] 20 meq PO DAILY #7 tablet 05/15/16 05/18/16 Rx Allergies Allergy/AdvReac Type Severity Reaction Status Date / Time No Known Allergies Allergy Verified 05/15/16 12:59 Exam (Pulmonay) H&P - Constitutional Vitals: Period Temp Pulse Resp BP Sys/Timmons Pulse Ox Last 24 Hr 97.1 F-99 F 85-128 10-20 76-146/46-85 95-100 Medical,Surgical,& Family Hx - Medical History HEENT: History of: Dental Problems (dentures upper and lower) Genitourinary: History of: Recurring Urinary Tract Infections Hematology: History of: Anemia - Surgical History Abdominal Surgeries: Surgical HX of: Colonoscopy (2017), EGD (2017) - Family History Family History: Reports;: Family Diabetes (sister), Family Hypertension (sister) - Social History Smoking Status: Never smoker Frequency of Alcohol Use: None Type of Drug Use: None Results - Labs CBC & BMP: 05/20/16 16:00 05/20/16 01:23 Quality Measures - VTE Contraindication to Pharmacological VTE Prophylaxis: High Risk of Bleeding
--- NOTE | 2016-05-20 18:38 | Internal Med Progress Note ---
Assessment and Plan (1) Anorexia Status: Chronic Current Visit: Yes (2) Weight loss Status: Chronic Current Visit: Yes (3) Nutritional deficiency Status: Chronic Current Visit: Yes (4) Hypokalemia Status: Acute Current Visit: Yes (5) Duodenal obstruction Status: Chronic Current Visit: Yes (6) Metastatic adenocarcinoma Status: Chronic Current Visit: Yes (7) Status post colostomy Status: Acute Current Visit: Yes Internal Medicine - PN: Subj Interval history: Ms. 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 She didn't like the food changes and stopped eating the food there. She has lost about 25 pounds since then. Her family had her worked up in [place] for cancer with uncertain findings. Requested records during clinic visit at [facility]. She came to clinic to [facility] in late April, then came back Wednesday of this week. She was admitted directly to hospital. She had lost five pounds in only a couple weeks. However, after receiving results of current CT, this case is surgical. Dr. Gunn, III was consulted to further evaluate. Surgery reveals cancer with mets (adenocarcinoma) of uncertain etiology. Discussed with family. Surgery resulted in debulking the cancer as a palliative measure. She did well with surgery. Postsurgical intubation/vent support in ICU. Exam (Progress Note) - Constitutional Vitals: Period Temp Pulse Resp BP Sys/Timmons Pulse Ox Last 24 Hr 97.1 F-99 F 85-128 10-20 76-146/46-85 95-100 Exam: General appearance: no acute distress (on vent support) - Respiratory Respiratory exam: Present: clear to auscultation bilaterally - Cardiovascular Cardiovascular exam: Present: tachycardia - GI/Abdominal GI/Abdominal exam: Present: surgical bandages in place - Extremities Exam Extremities exam: Absent: edema - Skin Skin exam: Present: warm, dry Vitals reviewed. Results - Labs CBC & BMP: 05/21/16 10:48 05/21/16 04:00 Quality Measures - VTE Contraindication to Pharmacological VTE Prophylaxis: High Risk of Bleeding
[2016-05-20] MEDS: cefTRIAXone 1,000 MG in SODIUM CHLORIDE 0.9% 100 ML IV SCH (21:31)
[2016-05-21 00:04] LABS: Hemoglobin 9.5 GM/DL (12.0-16.0)
[2016-05-21] MEDS: SODIUM CHLORIDE 0.9% 1,000 ML IV SCH ×3 (00:07→16:59)
[2016-05-21] MEDS: metroNIDAZOLE INJ 500 MG in PREMIX 1 EACH IV SCH ×3 (00:48→17:06)
[2016-05-21] MEDS: METOPROLOL TARTRATE 5 MG/5 ML VIAL IV SCH ×6 (01:29→21:26)
[2016-05-21] MEDS: PROPOFOL 1,000 MG/100 ML BOTTLE IV SCH (02:54)
[2016-05-21] MEDS: MORPHINE 2 MG/1 ML SYRINGE IV PRN ×3 (03:03→22:09)
[2016-05-21 04:09] LABS: ABG Base Excess 7.1 MMOL/L (-2.5-2.5); ABG HCO3 29.6 MMOL/L (20-26); ABG PH 7.545 (7.35-7.45); ABG PO2 262.8 MM HG (80-95); ABG TCO2 30.7 MMOL/L (23-27)
[2016-05-21 04:13] LABS: ABG Oxygen Saturation 99.7 % (95-100)
[2016-05-21 04:16] LABS: Basophils % 0.1 % (0.0-0.8); Hematocrit 28.7 VOL% (35.7-47.0); Hemoglobin 9.2 GM/DL (12.0-16.0); Immature Granulocytes % 1.7 %; Immature Granulocytes Absolute 0.17 #; Lymphocytes # 0.8 10*3/uL (1.4-4.0); Lymphocytes % 7.9 % (21.3-54.2); Mean Corpuscular HGB Conc 32.1 GM/DL (32-36); Mean Corpuscular Hemoglobin 29 PG (27-34); Mean Platelet Volume 11.5 FL (9.6-12.0); Monocytes # 0.5 10*3/uL (0.11-0.8); Monocytes % 5.1 % (1.7-12.7); Neutrophils # 8.3 10*3/uL (1.4-7.4); Neutrophils % 85.2 % (38.7-73.9); Platelet Count 194 T/CUMM (130-400); Red Blood Count 3.19 MC/CUMM (3.8-5.5); Red Cell Distribution Width 17.4 % (9.3-17.3); White Blood Count 9.8 T/CUMM (4-12)
[2016-05-21 04:48] LABS: Burr Cells Slight; Hypochromasia 1+; Ovalocytes Slight; Platelet Estimate Normal
[2016-05-21 04:57] LABS: Calcium 7.4 MG/DL (8.5-10.1); Magnesium 1.7 MG/DL (1.8-2.4); Phosphorous 1.6 MG/DL (2.5-4.9)
--- NOTE | 2016-05-21 07:35 | XRay Report ---
Referring Physician: José Yoon Exam: XR chest 1V portable Date: May 21, 2016 at 3:09 AM Reason: Ventilation, respiratory failure Comparison: Chest one view portable May 20, 2016 Findings: An endotracheal tube is again in place. Its distal tip is partially obscured by overlying lines, but it appears to be located just above the mary. It is recommended that it be retracted at least 2 cm. The cardiac silhouette is normal in size. A nipple shadow artifact is seen at the right lung base. However, no focal consolidation, pneumothorax or pleural effusion is identified. No acute osseous process is seen. Note is made of a stable sclerotic area within the proximal right humerus. Impression: The distal tip of the endotracheal tube again projects just above the mary. It is recommended that it be retracted at least 2 cm. PROCEDURE INTERPRETED AT [facility] DEPARTMENT OF RADIOLOGY Final Report Signed by: Dr. Sam Kellogg
[2016-05-21] MEDS ORDERED: POTASSIUM PHOSPHATE 30 MMOL in SODIUM CHLORIDE 0.9% 250 ML IV ONE (07:38)
[2016-05-21] MEDS ORDERED: POTASSIUM CHLORIDE RIDER 10 MEQ in PREMIX 1 EACH IV PRN (07:44)
[2016-05-21] MEDS: PANTOPRAZOLE 40 MG VIAL IV SCH (09:10)
--- NOTE | 2016-05-21 10:02 | Pulmonology Progress Note ---
Pulmonary - PN: Subj Interval history: Is a 61-year-old black female whom I saw in pulmonary consultation on 05/20/2016. My impressions were. 1. Postop abdominal surgery. Inoperable metastatic cancer of undetermined etiology. See op report. 2. Postop mechanical ventilation. 3. See past history 05/21/2016. Chest x-ray shows no infiltrates and no congestive heart failure. ABGs on mechanical ventilation look good. Potassium is low at 3.0. H&H is 9.2 28.7. White count was 9800 with 85 segs 8 lymphs and 5 monos. Platelets are 194,000. This patient appears to be waking up. I will try her on a T-tube and repeat some blood gases in about an hour and reevaluate at that time to see if she is ready for extubation. Physical exam. Vital signs. See below. Neurologic. Moves all fours. Beginning to wake up Face. Symmetrical. Lips and tongue appear to be normal. Neck. Symmetrical. No meningismus. Lymphatics. No submandibular cervical supraclavicular or epitrochlear adenopathy. Chest clear Heart. No gallop Abdomen. Postsurgical Extremities. Nothing to suggest deep venous thrombophlebitis. The remainder the physical exam is noncontributory Plan. 1. Continue present medicines 2. Mechanical ventilation weaning protocol. 05/21/2016, will try T-tube and reevaluate. 3. Mechanical ventilation physical therapy protocol 4. Deep venous thrombophlebitis prevention protocol 5. Proton pump inhibitor protocol. 6. Daily chest x-ray, ABGs and lab. 7. See order Home Medications Exam (Progress Note) - Constitutional Vitals: Period Temp Pulse Resp BP Sys/Timmons Pulse Ox Last 24 Hr 97.1 F-99.6 F 85-116 8-18 76-146/40-85 98-100 Results - Labs CBC & BMP: 05/21/16 04:00 05/21/16 04:00
[2016-05-21 11:00] LABS: Hematocrit 29.8 VOL% (35.7-47.0); Hemoglobin 9.2 GM/DL (12.0-16.0)
[2016-05-21 11:06] LABS: ABG HCO3 27.9 MMOL/L (20-26); ABG Oxygen Saturation 88.9 % (95-100); ABG PCO2 43.1 MM HG (35-48); ABG PH 7.432 (7.35-7.45); ABG PO2 58.5 MM HG (80-95); ABG TCO2 26.3 MMOL/L (23-27)
[2016-05-21 12:17] LABS: ABG Base Excess 3.5 MMOL/L (-2.5-2.5); ABG HCO3 27.6 MMOL/L (20-26); ABG Oxygen Saturation 99.8 % (95-100); ABG PCO2 42.2 MM HG (35-48); ABG PH 7.431 (7.35-7.45); ABG TCO2 25.7 MMOL/L (23-27)
--- NOTE | 2016-05-21 13:11 | Event Note ---
This note is a late entry. I saw the patient at about 630 this morning. She was stable on the ventilator. She was afebrile with a mild tachycardia. She is had good urine output. Her abdomen appears benign. Hopefully we can get her off the ventilator this morning.
[2016-05-21] MEDS: AMIODARONE 200 MG TABLET PO SCH ×2 (13:24→21:09)
--- NOTE | 2016-05-21 13:47 | Ultrasound Report ---
Exam: US venous doppler LE BI Indication: Shortness of breath Date: 05/21/2016 11:17 AM Findings: Grayscale color flow duplex/Doppler imaging and spectral analysis waveform imaging was performed with real-time ultrasound with image stored and captured. The right common femoral, superficial femoral, popliteal saphenous veins are patent with normal augmentation and compression. There is no evidence of popliteal or Hanson's cyst. Normal wave form analysis present. Normal color flow The left common femoral, superficial femoral, popliteal saphenous veins are patent with normal augmentation and compression. There is no evidence of popliteal or Hanson's cyst. Normal wave form analysis present. Normal color flow Impression: 1. No DVT PROCEDURE INTERPRETED AT [facility] DEPARTMENT OF RADIOLOGY Final Report Signed by: Dr. Moses Berger
[2016-05-21 15:45] LABS: ABG Base Excess 3.9 MMOL/L (-2.5-2.5); ABG HCO3 28.5 MMOL/L (20-26); ABG Oxygen Saturation 98.2 % (95-100); ABG PCO2 43.2 MM HG (35-48); ABG PH 7.437 (7.35-7.45); ABG PO2 125.5 MM HG (80-95); ABG TCO2 29.8 MMOL/L (23-27)
[2016-05-21] MEDS: FAT EMULSION 20% IV SCH ×2 (15:45→16:28)
[2016-05-21] MEDS ORDERED: TRACE ELEMENTS (5) 1 ML, MULTIVITAMIN INJ 10 ML, MAGNESIUM SULF INJ 2 GM in AMINO ACIDS... IV SCH (17:00)
[2016-05-21] MEDS ORDERED: DEXTROSE 10% 1,000 ML IV PRN (17:00)
--- NOTE | 2016-05-21 19:33 | Internal Med Progress Note ---
Assessment and Plan (1) Anorexia Status: Chronic Current Visit: Yes (2) Weight loss Status: Chronic Current Visit: Yes (3) Nutritional deficiency Status: Chronic Current Visit: Yes (4) Hypokalemia Status: Acute Current Visit: Yes (5) Duodenal obstruction Status: Chronic Current Visit: Yes (6) Status post colostomy Status: Acute Current Visit: Yes (7) Metastatic adenocarcinoma Status: Chronic Current Visit: Yes Internal Medicine - PN: Subj Interval history: Ms. 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 She didn't like the food changes and stopped eating the food there. She has lost about 25 pounds since then. Her family had her worked up in [place] for cancer with uncertain findings. Requested records during clinic visit at [facility]. She came to clinic to critical access hospital in late April, then came back Wednesday of this week. She was admitted directly to hospital. She had lost five pounds in only a couple weeks. However, after receiving results of current CT, this case is surgical. Dr. Gunn, III was consulted to further evaluate. Surgery reveals cancer with mets (adenocarcinoma) of uncertain etiology. Discussed with family. Surgery resulted in debulking the cancer as a palliative measure. She did well with surgery. Postsurgical intubation/vent support in ICU. Today, , she is extubated and awake. She knows she has cancer. She denies pain. Had added Amiodarone to help with sinus tachycardia, but not very effective. Will consult Dr. Rodriguez to help with tachycardia. Exam (Progress Note) - Constitutional Vitals: Period Temp Pulse Resp BP Sys/Timmons Pulse Ox Last 24 Hr 98.9 F-99.6 F 91-117 8-23 97-135/40-74 95-100 Exam: General appearance: no acute distress; awake - Respiratory Respiratory exam: Present: clear to auscultation bilaterally - Cardiovascular Cardiovascular exam: Present: tachycardia - GI/Abdominal GI/Abdominal exam: Present: surgical bandages in place - Extremities Exam Extremities exam: Absent: edema - Skin Skin exam: Present: warm, dry Vitals reviewed. Results - Labs CBC & BMP: 05/21/16 10:48 05/21/16 04:00 - Diagnostic Findings Procedure: Chest x-ray: report reviewed by me, image reviewed by me Quality Measures - VTE Contraindication to Pharmacological VTE Prophylaxis: High Risk of Bleeding
[2016-05-21] MEDS: cefTRIAXone 1,000 MG in SODIUM CHLORIDE 0.9% 100 ML IV SCH (21:26)
[2016-05-22] MEDS: SODIUM CHLORIDE 0.9% 1,000 ML IV SCH ×3 (02:05→18:15)
[2016-05-22] MEDS: METOPROLOL TARTRATE 5 MG/5 ML VIAL IV SCH ×4 (02:06→14:29)
[2016-05-22] MEDS: metroNIDAZOLE INJ 500 MG in PREMIX 1 EACH IV SCH ×3 (02:06→17:24)
[2016-05-22 03:53] LABS: ABG HCO3 26.2 MMOL/L (20-26); ABG Oxygen Saturation 99.6 % (95-100); ABG PCO2 43.3 MM HG (35-48); ABG PH 7.402 (7.35-7.45); ABG TCO2 25.3 MMOL/L (23-27)
[2016-05-22 03:59] LABS: Basophils % 0.1 % (0.0-0.8); Eosinophils % 0.3 % (0.00-10.9); Hematocrit 26.5 VOL% (35.7-47.0); Immature Granulocytes % 2.3 %; Immature Granulocytes Absolute 0.28 #; Lymphocytes # 0.7 10*3/uL (1.4-4.0); Lymphocytes % 5.8 % (21.3-54.2); Mean Corpuscular HGB Conc 30.2 GM/DL (32-36); Mean Corpuscular Hemoglobin 29 PG (27-34); Mean Corpuscular Volume 95.3 FL (87-102); Mean Platelet Volume 11.3 FL (9.6-12.0); Monocytes # 0.8 10*3/uL (0.11-0.8); Monocytes % 6.9 % (1.7-12.7); Neutrophils # 10.1 10*3/uL (1.4-7.4); Neutrophils % 84.6 % (38.7-73.9); Platelet Count 164 T/CUMM (130-400); Red Blood Count 2.78 MC/CUMM (3.8-5.5); Red Cell Distribution Width 17.3 % (9.3-17.3); White Blood Count 11.9 T/CUMM (4-12)
[2016-05-22] MEDS: POTASSIUM CHLORIDE RIDER 10 MEQ in PREMIX 1 EACH IV PRN ×3 (04:00→07:22)
[2016-05-22 04:32] LABS: Phosphorous 1.9 MG/DL (2.5-4.9)
[2016-05-22 04:35] LABS: Hypochromasia 1+; Lymphocytes 5 % (20-55); Ovalocytes Slight; Platelet Estimate Normal; Segmented Neutrophils 90 % (50-85); Total Cells Counted 100
[2016-05-22 06:56] LABS: Calcium 7.1 MG/DL (8.5-10.1); Osmolality,Calculated 294.6 MOS/KG (273-304); Potassium 3.5 MMOL/L (3.5-5.1)
--- NOTE | 2016-05-22 07:28 | Oncology Progress Note ---
Oncology Subjective PN Interval history: Path report pending. I will check back Wednesday. Exam - Constitutional Vitals: Period Temp Pulse Resp BP Sys/Timmons Pulse Ox Last 24 Hr 97.0 F-99.6 F 89-117 8-24 99-130/58-74 95-100 Results - Labs CBC & BMP: 05/22/16 03:45 05/22/16 03:45 Quality Measures - VTE Contraindication to Pharmacological VTE Prophylaxis: High Risk of Bleeding
--- NOTE | 2016-05-22 07:37 | XRay Report ---
Referring Physician: José Yoon Exam: XR chest 1V portable Date: May 22, 2016 at 3:15 AM Reason: Ventilation Comparison: Chest one view portable May 21, 2016 Findings: The previously seen endotracheal tube is no longer identified. A right IJ catheter is in place with its distal tip at the SVC/right atrial junction. The cardiac silhouette is normal in size. There are scattered opacities within both lower lung zones. This likely represents atelectasis, but other considerations include mild pulmonary edema or pneumonia. No pneumothorax is identified, but minimal bilateral pleural fluid is suspected. The osseous structures appear stable. Impression: 1. The previously seen endotracheal tube has been removed. 2. There are scattered opacities within both lower lung zones. This likely represents atelectasis, but other considerations include mild pulmonary edema or pneumonia. Minimal bilateral pleural fluid is also suspected. PROCEDURE INTERPRETED AT [facility] DEPARTMENT OF RADIOLOGY Final Report Signed by: Dr. Sam Kellogg
[2016-05-22] MEDS ORDERED: POTASSIUM CHLORIDE RIDER 10 MEQ in PREMIX 1 EACH IV PRN (08:55)
[2016-05-22] MEDS ORDERED: METOPROLOL TARTRATE 25 MG TABLET PO SCH (09:00)
--- NOTE | 2016-05-22 09:04 | Event Note ---
She is awake and alert and feels better. Her abdomen is not distended. Her vital signs are stable. It is okay with me for her to go to the floor and to get her up out of bed. We will put her G-tube on intermittent suction to try to keep her stomach decompressed. Her stomach was massively distended preoperatively and I expect her to have an element of gastric atony. I would like to avoid gastric distention in this patient who had an area of necrosis of the fundus of her stomach which had to be resected.
--- NOTE | 2016-05-22 09:22 | Cardiology Consult Note ---
Assessment and Plan - Time spent with patient Time spent with patient: Greater than 30 minutes (1) Sinus tachycardia Status: Acute Assessment and plan: SEE PLAN OF CARE LISTED BELOW Current Visit: Yes (2) Anorexia Status: Chronic Assessment and plan: SEE PLAN OF CARE LISTED BELOW Current Visit: Yes (3) Nutritional deficiency Status: Chronic Assessment and plan: SEE PLAN OF CARE LISTED BELOW Current Visit: Yes (4) Metastatic adenocarcinoma Status: Acute Assessment and plan: SEE PLAN OF CARE LISTED BELOW Current Visit: Yes (5) Status post colostomy Status: Chronic Assessment and plan: SEE PLAN OF CARE LISTED BELOW Current Visit: Yes (6) Anemia Status: Acute Assessment and plan: SEE PLAN OF CARE LISTED BELOW Current Visit: Yes History of Present Illness - Data of Consult Patient: new to practice Consult date: 05/22/16 Requesting Physician: Ronda Shanks - Consult Narrative Reason for consult: Sinus tachycardia History of present illness: AUTOMATIC CHIEF: DR. VOSS (new) PCP: DR. RONDA SHANKS Patient is being seen in the ICU. Ms. Schneider, 61-year-old -[place]ron[place] female, has never been followed by benefits clerk before. Risk factors include: sedentary lifestyle. Patient was admitted to the hospital by Dr. Ronda Shanks for continued anorexia, weight loss. Over the past several months, patient has continued to lose significant amount of weight as she had no desire to eat and early satiety. She has had prolonged anorexia and is emaciated and cachectic. During this admission, she underwent partial gastric resection of the mid body of the stomach, stapled jejunojejunostomy, loop colostomy, Debbie gastrostomy May 20, [address] Gunn III. She has been diagnosed with metastatic adenocarcinoma and the surgery was performed as a palliative measure. Postoperatively, she has been in a sinus tachycardia without arrhythmia. Initially, after surgery her heart rates were averaging 110s however, seem to be improved at 90 bpm to low 100s. Patient denies a history of known coronary artery disease, chest pain, heaviness or tightness. At this point, I will order an echocardiogram to evaluate cardiac anatomy. Low- dose beta blockade per tube or when able to take pills orally. Continue hydration and pain control which may improve her heart rate. EKG today and in the morning. We will follow her labs daily including BMP magnesium and CBC. Will add a TSH. ASSESSMENT/PLAN: 1. SINUS TACHYCARDIA -echocardiogram, low-dose beta blockade and will include increase the dose as her blood pressure tolerates. Continue with gentle hydration, pain control, watch anemia. We will watch for any arrhythmia and treat accordingly. Fortunately, at this point, it seems to be a sinus tachycardia without arrhythmia. 2. S/P ABDOMINAL SURGERY. INOPERABLE METASTATIC CANCER OF UNDERTERMINED ETIOLOGY -continue current plan of care. 3. ANEMIA - follow labs daily, transfusing as needed. 4. ANOREXIA WITH WEIGHT LOSS - continue current plan of care 5. NUTRITIONAL DEFICIT - continue maximizing nutritional deficits CC: Ronda Shanks, DO - Home Medications and Allergies Home Medications: Home Medications Medication Instructions Recorded Confirmed Type Ciprofloxacin Tab [Cipro Tab] 500 mg PO BID #14 tablet 05/15/16 05/18/16 Rx Potassium Chloride Cap/Tab [K Dur] 20 meq PO DAILY #7 tablet 05/15/16 05/18/16 Rx Allergies/Adverse Reactions: Allergies Allergy/AdvReac Type Severity Reaction Status Date / Time No Known Allergies Allergy Verified 05/15/16 12:59 Review of systems: REVIEW OF SYSTEMS: - Constitutional: Poor historian Constitutional: Present: Fatigue. Anorexia absent: syncope, night sweats - EENT Eyes: Absent: blurry vision, loss of vision, diplopia Ears: Absent: decreased hearing, ear pain, ear discharge - Cardiovascular Cardiovascular: Denies chest pain with exertion, dyspnea on exertion, edema, palpitations. Absent: chest pain with deep breath, claudication - Respiratory Respiratory: Denies FRIED, cough. Absent: wheezing, hemoptysis, change in phlegm color - Gastrointestinal Gastrointestinal: Present: Abdominal discomfort, bloating. Early satiety, no desire to eat - Genitourinary Genitourinary: Absent: difficulty urinating, dysuria, urinary hesitancy, flank pain - Musculoskeletal Musculoskeletal: Present: back pain Absent: joint swelling, muscle cramps, muscle weakness - Neurological Neurological: Present: Poor gait. Without frequent falls. Absent: dizziness, hemiparesis - Psychiatric Psychiatric: Absent: anxiety, depression, difficulty concentrating - Endocrine Endocrine: Present: fatigue. Absent: cold intolerance, heat intolerance, polyuria, polyphagia, polydipsia - Hematologic/Lymphatic Hematologic/Lymphatic: Present: easy bruising. Absent: easy bleeding -Integumentary Integumentary: Absent: lesions, rashes, skin breakdown Medical,Surgical,& Family Hx - Medical History Cardio: No history of: Cardiac Dysrhythmia, CHF, CAD, Hypertension, GA, Cardiovascular Problems HEENT: History of: Dental Problems (dentures upper and lower) Genitourinary: History of: Recurring Urinary Tract Infections Hematology: History of: Anemia - Surgical History Abdominal Surgeries: Surgical HX of: Colonoscopy (2017), EGD (2017) - Family History Family History: Reports;: Family Diabetes (sister), Family Hypertension (sister) - Social History Smoking Status: Never smoker Have you smoked in the last 12 months: No Frequency of Alcohol Use: None Type of Drug Use: None Physical Examination Vital Signs Temp Pulse Resp BP Pulse Ox 98.2 F 129 H 18 113/77 93 L 05/18/16 17:15 05/18/16 17:15 05/18/16 17:15 05/18/16 17:15 05/18/16 17:15 General: [Appears comfortable, pleasant and cooperative. ] HEENT: [PERRL, normocephalic, atraumatic. Mucous membranes moist. No jaundice noted. Conjunctiva moist and clear, sclerae anicteric] Neck: No JVD/HJR, no thyromegaly or lymphadenopathy noted. No carotid bruit appreciated Cardiac: [Fast rate but regular rhythm. No obvious murmur rub or gallop is appreciated. Lungs: [Clear to auscultation without accessory muscle use to assist the respiratory pattern.] Using oxygen intermittently Abdomen: Colostomy intact, sluggish bowel sounds. Heath catheter intact draining clear yellow urine Musculoskeletal: No fluid collection. Decreased range of motion is noted. Extremities: No clubbing, cyanosis noted. [ No edema noted.] Upper extremity pulses 2+. Lower extremity pulses 2+. Capillary refill less than 3 seconds. Skin: No unusual lesions or rashes. No skin breakdown appreciated. Neuro: Awake, alert and oriented 3. Moves all extremities well without hemiparesis or paralysis. No essential tremor is appreciated. Result/EKG - Labs CBC & BMP: 05/22/16 03:45 05/22/16 03:45 Lab Results: I have reviewed the past 24 hour labs Labs: Laboratory Results - last 24 hr 05/21/16 05/21/16 05/21/16 10:48 11:06 12:18 WBC RBC Hgb 9.2 L Hct 29.8 L MCV MCH MCHC RDW Plt Count MPV Neut % (Auto) Lymph % (Auto) [place] % (Auto) Eos % (Auto) Baso % (Auto) Neut # (Auto) Lymph # (Auto) [place] # (Auto) Eos # (Auto) Baso # (Auto) Total Counted Immature Gran % Nucleated RBC % Immature Gran # Segmented Neutrophils Lymphocytes Monocytes Nucleated RBCs # Platelet Estimate Hypochromasia Ovalocytes Morphology Comment ABG pH 7.432 7.431 ABG pCO2 43.1 42.2 ABG pO2 58.5 L 211.0 H ABG HCO3 27.9 H 27.6 H ABG Total CO2 26.3 25.7 ABG O2 Saturation 88.9 L 99.8 ABG Base Excess 4.0 H 3.5 H Sodium Potassium Chloride Carbon Dioxide Anion Gap BUN Creatinine GFR Calculation BUN/Creatinine Ratio Glucose Calculated Osmolality Calcium Phosphorus Magnesium 05/21/16 05/22/16 05/22/16 15:40 03:45 03:45 WBC 11.9 RBC 2.78 L Hgb 8.0 L Hct 26.5 L MCV 95.3 MCH 29 MCHC 30.2 L RDW 17.3 Plt Count 164 MPV 11.3 Neut % (Auto) 84.6 H Lymph % (Auto) 5.8 L [place] % (Auto) 6.9 Eos % (Auto) 0.3 Baso % (Auto) 0.1 Neut # (Auto) 10.1 H Lymph # (Auto) 0.7 L [place] # (Auto) 0.8 Eos # (Auto) 0.0 Baso # (Auto) 0.0 Total Counted 100 Immature Gran % 2.3 Nucleated RBC % 0.0 Immature Gran # 0.28 Segmented Neutrophils 90 H Lymphocytes 5 L Monocytes 5 Nucleated RBCs # 0.00 Platelet Estimate Normal Hypochromasia 1+ Ovalocytes Slight Morphology Comment ABG pH 7.437 ABG pCO2 43.2 ABG pO2 125.5 H ABG HCO3 28.5 H ABG Total CO2 29.8 H ABG O2 Saturation 98.2 ABG Base Excess 3.9 H Sodium Potassium Chloride Carbon Dioxide Anion Gap BUN Creatinine GFR Calculation BUN/Creatinine Ratio Glucose Calculated Osmolality Calcium Phosphorus 1.9 L Magnesium 2.0 05/22/16 05/22/16 03:45 03:45 WBC RBC Hgb Hct MCV MCH MCHC RDW Plt Count MPV Neut % (Auto) Lymph % (Auto) [place] % (Auto) Eos % (Auto) Baso % (Auto) Neut # (Auto) Lymph # (Auto) [place] # (Auto) Eos # (Auto) Baso # (Auto) Total Counted Immature Gran % Nucleated RBC % Immature Gran # Segmented Neutrophils Lymphocytes Monocytes Nucleated RBCs # Platelet Estimate Hypochromasia Ovalocytes Morphology Comment ABG pH 7.402 ABG pCO2 43.3 ABG pO2 147.0 H ABG HCO3 26.2 H ABG Total CO2 25.3 ABG O2 Saturation 99.6 ABG Base Excess 2.0 Sodium 146 H Potassium 3.5 Chloride 111 H Carbon Dioxide 28 Anion Gap 10.5 BUN 21 H D Creatinine 0.40 L GFR Calculation 112 BUN/Creatinine Ratio 52.00 H Glucose 130 H Calculated Osmolality 294.6 Calcium 7.1 L Phosphorus Magnesium - Diagnostic Findings Procedure: Chest x-ray: report reviewed by me, CT Abdomen and Pelvis: report reviewed by me, Ultrasound: pending - EKG EKG results: interpreted by me EKG shows: tachycardia, sinus rhythm Quality Measures - VTE Contraindication to Pharmacological VTE Prophylaxis: High Risk of Bleeding
[2016-05-22] MEDS: AMIODARONE 200 MG TABLET PO SCH (09:24)
[2016-05-22] MEDS: PANTOPRAZOLE 40 MG VIAL IV SCH (09:25)
--- NOTE | 2016-05-22 10:13 | EKG Report ---
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
[2016-05-22 10:22] LABS: Free T4 (Free Thyroxine) 1.41 NG/DL (0.76-1.46); Thyroid Stimulating Hormone 0.896 uIU/ml (0.358-3.74)
--- NOTE | 2016-05-22 10:46 | Pulmonology Progress Note ---
Pulmonary - PN: Subj Interval history: Is a 61-year-old black female whom I saw in pulmonary consultation on 05/20/2016. My impressions were. 1. Postop abdominal surgery. Inoperable metastatic cancer of undetermined etiology. See op report. 2. Postop mechanical ventilation. 3. See past history 05/21/2016. Chest x-ray shows no infiltrates and no congestive heart failure. ABGs on mechanical ventilation look good. Potassium is low at 3.0. H&H is 9.2 28.7. White count was 9800 with 85 segs 8 lymphs and 5 monos. Platelets are 194,000. This patient appears to be waking up. I will try her on a T-tube and repeat some blood gases in about an hour and reevaluate at that time to see if she is ready for extubation. 05/22/2016. Patient was extubated on 05/21/2016 and she has done well since that time. Her chest x-ray shows minimal bibasilar atelectasis. ABGs show a pH 7.40 , PCO2 43, PO2 147 and a bicarb of 26. Electrolytes are normal. Creatinine is 0.40 with a BUN of 21 white count 11,984.6 segs H&H is 8.0 26.5. Platelets are 164,000. This patient looks like she will do good from a pulmonary standpoint. I will sign off. Reconsult me if needed. Physical exam. Vital signs. See below. Neurologic. Moves all fours. Awake and alert Face. Symmetrical. Lips and tongue appear to be normal. Neck. Symmetrical. No meningismus. Lymphatics. No submandibular cervical supraclavicular or epitrochlear adenopathy. Chest clear Heart. No gallop Abdomen. Postsurgical Extremities. Nothing to suggest deep venous thrombophlebitis. The remainder the physical exam is noncontributory Plan. #1. Extubated 05/21/2016. #2 05/22/2016. See today's note above. 3. I will sign off. Reconsult me if needed. Home Medications Exam (Progress Note) - Constitutional Vitals: Period Temp Pulse Resp BP Sys/Timmons Pulse Ox Last 24 Hr 97.0 F-99.5 F 89-117 12-26 99-130/58-74 98-100 Results - Labs CBC & BMP: 05/22/16 03:45 05/22/16 03:45
--- NOTE | 2016-05-22 14:15 | Pathology Report from [facility] ---
ACCESSION # : [id number] PATIENT NAME : Kay Stone ORDERING DR : OSEAS SANCHEZ III, MD CLINICAL HX: Bowel obstruction POST-OP DX: Same + Metastatic carcinoma SPECIMEN INFO: #1 Peritoneal implant #2 Mesenteric implant #3 Portion of stomach GROSS DESCRIPTION: #1 Received fresh for frozen section labeled with the patient 's name "KAY STONE" and is a 1.3 x 0.4 cm pink-gentile soft tissue fragment. Submitted in cassette #1 for frozen section.#2 Received in formalin labeled with the patient's name "KAY STONE and #2" consists of a 0.6 x 0.4 cm yellow-gentile tissue fragment. Submitted in cassette #2.#2 Received in formalin labeled with the patient's name "KAY STONE and #3" consists of a circular portion of stomach measuring 5.5 x 5.0 cm. The serosa is red-gentile with an area of marked thinning in the stomach wall present measuring 1.8 x 1.5 cm. No distinct masses are seen on the mucosal surface. Truck Service Technician sections submitted in cassette #3. DIAGNOSIS FOR KAY STONE: #1 PERITONEAL IMPLANT: Metastatic adenocarcinoma, moderately-differentiated.#2 MESENTERIC IMPLANT: Metastatic adenocarcinoma, moderately-differentiated.#3 PORTION OF STOMACH: Marked ulceration with necrosis, suppuration and hemorrhage; no tumor seen.Comment: The immunophenotype (ck7+, ck20-, ca19-9+, cdx2-, ca125+) suggests pancreato- biliary orgin; also consider gastric and VINYL TOP INSTALLER origin. SERVICE DATE: 05/20/2016 REPORT DATE: 05/22/2016 PATHOLOGIST: Ajith Barillas
[2016-05-22] MEDS: FAT EMULSION 20% IV SCH (14:21)
--- NOTE | 2016-05-22 15:13 | Event Note ---
<Glenis Sanchez E - Last Filed: 05/22/16 15:11> Called home phone to discuss condition with family however, no answer and no voice mail. <Sebastián Rodriguez - Last Filed: 06/02/16 12:03> As best I can tell, this is not my patient. I was not involved with this patient in the hospital. I will defer to Ms. Glenis Sanchez, nurse practitioner
[2016-05-22] MEDS ORDERED: SODIUM CHLORIDE 0.9% 250 ML IV PRN (16:23)
--- NOTE | 2016-05-22 16:23 | Internal Med Progress Note ---
Assessment and Plan (1) Anorexia Status: Chronic Current Visit: Yes (2) Weight loss Status: Chronic Current Visit: Yes (3) Nutritional deficiency Status: Chronic Current Visit: Yes (4) Hypokalemia Status: Acute Current Visit: Yes (5) Duodenal obstruction Status: Chronic Current Visit: Yes (6) Status post colostomy Status: Chronic Current Visit: Yes (7) Metastatic adenocarcinoma Status: Acute Current Visit: Yes (8) Sinus tachycardia Status: Acute Current Visit: Yes Internal Medicine - PN: Subj Interval history: Ms. 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 She didn't like the food changes and stopped eating the food there. She has lost about 25 pounds since then. Her family had her worked up in [place] for cancer with uncertain findings. Requested records during clinic visit at [facility]. She came to clinic to [facility] in late April, then came back Wednesday of this week. She was admitted directly to hospital. She had lost five pounds in only a couple weeks. However, after receiving results of current CT, this case is surgical. Dr. Gunn, III was consulted to further evaluate. Surgery reveals cancer with mets (adenocarcinoma) of uncertain etiology. Discussed with family. Surgery resulted in debulking the cancer as a palliative measure. She did well with surgery. Postsurgical intubation/vent support in ICU. Today, , she is extubated and awake. She knows she has cancer. She denies pain. Had added Amiodarone to help with sinus tachycardia, but not very effective. Will consult Dr. Rodriguez to help with tachycardia. Wednesday, she actually looks much better, but heart rate still too fast. Exam (Progress Note) - Constitutional Vitals: Period Temp Pulse Resp BP Sys/Timmons Pulse Ox Last 24 Hr 97.0 F-99.5 F 89-115 12-27 99-131/58-67 100-100 Exam: General appearance: no acute distress; awake and alert - Respiratory Respiratory exam: Present: clear to auscultation bilaterally - Cardiovascular Cardiovascular exam: Present: tachycardia - GI/Abdominal GI/Abdominal exam: Present: surgical bandages in place - Extremities Exam Extremities exam: Absent: edema - Skin Skin exam: Present: warm, dry Vitals reviewed. Results - Labs CBC & BMP: 05/22/16 03:45 05/22/16 03:45 Quality Measures - VTE Contraindication to Pharmacological VTE Prophylaxis: High Risk of Bleeding
[2016-05-22] MEDS: TRACE ELEMENTS (5) 1 ML, MULTIVITAMIN INJ 10 ML, MAGNESIUM SULF INJ 2 GM in AMINO ACIDS... IV SCH (17:24)
--- NOTE | 2016-05-22 18:03 | ECHO Report ---
Kay Schneider Exam Date: 05/22/2016 12:22 Referring Physician: Technologist: Genevieve Freeman RDCS Age: 61 Ht (in): 62 Wt (lb): 107 Gender: F Exam Location: [facility] Echo Indications: Anorexia, Weight loss, Hypokalemia, s/p Colostomy, Tachycardia, Metastatic adencarcinoma BP: 120 / 63 HR: 109 Rhythm: Sinus Technical Quality: IMPRESSIONS Normal left ventricular cavity size. Normal left ventricular wall thickness. Normal systolic function. Left ventricular ejection fraction is estimated at 60 %. Normal diastolic function. The mitral valve is thickened, without prolapse. There is trace mitral regurgitation. Mild pulmonary hypertension. MEASUREMENTS (Male / Female) Normal Values 2D ECHO LV Diastolic Diameter PLAX 2.8 cm 4.2 - 5.9 / 3.9 - 5.3 cm LV Systolic Diameter PLAX 1.9 cm LV Fractional Shortening PLAX 30.7 % IVS Diastolic Thickness 0.7 cm 0.6 - 1.0 / 0.6 - 0.9 cm LVPW Diastolic Thickness 0.7 cm 0.6 - 1.0 / 0.6 - 0.9 cm RV Internal Dim ED PLAX 2.9 cm Aortic Root Diameter 2.4 cm LA Systolic Diameter LX 3.0 cm 3.0 - 4.0 / 2.7 - 3.8 cm DOPPLER TR Peak Velocity 296.0 cm/s TR Peak Gradient 35.0 mmHg FINDINGS Left Ventricle Normal left ventricular cavity size. Normal left ventricular wall thickness. Normal systolic function. Left ventricular ejection fraction is estimated at 60 %. Normal diastolic function. Right Ventricle The right ventricle is normal in size and function. Right Atrium The right atrium is mildly enlarged. Left Atrium The left atrium is mildly enlarged. Mitral Valve The mitral valve is thickened, without prolapse. There is trace mitral regurgitation. Aortic Valve Morphologically normal aortic valve without significant sclerosis or stenosis. There is no aortic regurgitation. Tricuspid Valve Morphologically normal tricuspid valve. Mild tricuspid valve regurgitation. Tricuspid regurgitation velocities suggest a PAP of 45 mmHg. Pulmonic Valve Morphologically normal pulmonic valve without significant stenosis. There is no pulmonic regurgitation. Pericardium Normal pericardium without effusion. Aorta Normal ascending aorta dimension. Tyron Irizarry (Electronically Signed) Final Date: 22 May 2016 18:02
[2016-05-22] MEDS: MORPHINE 2 MG/1 ML SYRINGE IV PRN (20:44)
[2016-05-22] MEDS: METOPROLOL TARTRATE 25 MG TABLET PO SCH (20:51)
[2016-05-22] MEDS: cefTRIAXone 1,000 MG in SODIUM CHLORIDE 0.9% 100 ML IV SCH (20:55)
[2016-05-23] MEDS: metroNIDAZOLE INJ 500 MG in PREMIX 1 EACH IV SCH ×3 (01:15→17:16)
[2016-05-23] MEDS: SODIUM CHLORIDE 0.9% 1,000 ML IV SCH ×3 (03:40→20:06)
[2016-05-23 04:35] LABS: Basophils % 0.1 % (0.0-0.8); Eosinophils # 0.1 10*3/uL (0.0-0.87); Eosinophils % 0.6 % (0.00-10.9); Hematocrit 33.5 VOL% (35.7-47.0); Immature Granulocytes Absolute 0.26 #; Lymphocytes # 0.7 10*3/uL (1.4-4.0); Lymphocytes % 5.7 % (21.3-54.2); Mean Corpuscular HGB Conc 32.2 GM/DL (32-36); Mean Corpuscular Hemoglobin 29 PG (27-34); Mean Corpuscular Volume 90.3 FL (87-102); Mean Platelet Volume 10.6 FL (9.6-12.0); Monocytes % 7.5 % (1.7-12.7); Neutrophils # 10.7 10*3/uL (1.4-7.4); Neutrophils % 84.1 % (38.7-73.9); Platelet Count 157 T/CUMM (130-400); Red Cell Distribution Width 16.2 % (9.3-17.3); White Blood Count 12.7 T/CUMM (4-12)
[2016-05-23 05:07] LABS: Hemoglobin 10.8 GM/DL (12.0-16.0); Red Blood Count 3.71 MC/CUMM (3.8-5.5)
[2016-05-23 05:08] LABS: Osmolality,Calculated 289.7 MOS/KG (273-304); Phosphorous 1.4 MG/DL (2.5-4.9); Potassium 3.3 MMOL/L (3.5-5.1)
[2016-05-23] MEDS: POTASSIUM CHLORIDE RIDER 20 MEQ in PREMIX 1 EACH IV PRN ×3 (05:23→14:09)
--- NOTE | 2016-05-23 06:19 | Family Practice Progress Note ---
Family Practice - PN: Subj Interval history: Patient states she is feeling some better this morning and states she may be a little bit hungry. She states her abdominal pain is markedly improved. She apparently has adenocarcinoma of uncertain primary and has had a partial colectomy with colostomy placement. Patient's blood pressure is marginal but acceptable. Patient's urine output is acceptable as well and her renal function is normal. Exam (Progress Note) - Constitutional Vitals: Period Temp Pulse Resp BP Sys/Timmons Pulse Ox Last 24 Hr 97.5 F-99.6 F 89-115 15-27 109-146/58-83 98-100 Exam: Objective reveals a thin black female is awake alert and able answer questions appropriately. She cast a glare of destain at her hyperalimentation bag and told me that was only think she was getting to eat. Cardiovascular: Heart rates regular there is no murmurs or gallops. Respiratory: Lungs clear to auscultation bilaterally. Abdomen: Patient has no significant tenderness and bowel sounds are present. Results - Labs CBC & BMP: 05/23/16 04:10 05/23/16 04:10 Lab Results: I have reviewed the past 24 hour labs Assessment and Plan (1) Metastatic adenocarcinoma Status: Acute Assessment and plan: 05/23/2016: Further evaluation of her adenocarcinoma is in progress. Current Visit: Yes (2) Status post colostomy Status: Chronic Assessment and plan: 05/23/2016: Patient is doing well postop. Current Visit: Yes Quality Measures - VTE Contraindication to Pharmacological VTE Prophylaxis: High Risk of Bleeding
--- NOTE | 2016-05-23 07:50 | EKG Report ---
Stationary ECG Study [facility] Test Date: 05/23/2016 7:50:21 AM Pat Name: SANDRA STONE Department: Room: 110 Gender: F Last Code Striper: GAMAL : 1955 Requested by: Glenis Bauer Order Number: [id number] Reading MD: FADI REDDY Intervals [place] Rate: 109 P: 38 IN: 126 QRS: 13 QRSD: 78 T: 27 QT: 320 QTc: 384 Interpretive Statements SINUS TACHYCARDIA POOR R-WAVE PROGRESSION Electronically Signed On 05-25-16 16:30:38 CDT by FADI REDDY [email or web address]
--- NOTE | 2016-05-23 08:40 | Event Note ---
05/23/2016 Patient is stable at this point time. NG tube is continuing to drain minimal amount. She remains on hyper out this point time and dressings look clean and dry. Dr. Gunn indicated in his note that she probably could move to the floor though she is a high fall risk will need to be close to the nursing station and have family in the room with her at all times. She looks stable today and will let medicine decide about when they were moved to the floor.
[2016-05-23] MEDS: METOPROLOL TARTRATE 25 MG TABLET PO SCH (08:53)
[2016-05-23] MEDS: PANTOPRAZOLE 40 MG VIAL IV SCH (08:56)
[2016-05-23] MEDS ORDERED: SODIUM PHOSPHATE INJ 30 MMOL in SODIUM CHLORIDE 0.9% 250 ML IV ONE (10:30)
[2016-05-23] MEDS: MORPHINE 2 MG/1 ML SYRINGE IV PRN (12:44)
[2016-05-23] MEDS ORDERED: METOPROLOL TARTRATE 25 MG TABLET PO ONE (12:48)
--- NOTE | 2016-05-23 13:11 | Cardiology Progress Note ---
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 Persistent sinus tachycardia, not symptomatic. Blood pressure is normal, she is adequately perfused. -ST. Not symptomatic. Underlying causes are being addressed. She is getting TPN. Was transfused for anemia. Thyroid function normal. No cardiomyopathy on echo, no pericardial effusion. -Continue metoprolol 50 mg twice daily. -May go to med/surg bed Current Visit: Yes (2) Metastatic adenocarcinoma Status: Acute Current Visit: Yes (3) Sinus tachycardia Status: Acute Current Visit: Yes (4) Anemia Status: Acute Current Visit: Yes Cardiology - PN: Subj Interval history: Sinus tachycardia, not symptomatic. No cardiomyopathy or pericardial effusion on echo. Exam (Progress Note) - Constitutional Vitals: Period Temp Pulse Resp BP Sys/Timmons Pulse Ox Last 24 Hr 97.5 F-99.6 F 105-115 15-25 101-146/60-83 98-100 General appearance: normal weight, no acute distress - Head Head exam: Present: normal inspection - Eye Eye exam: Absent: conjunctival injection Pupils: Absent: dilated - ENT ENT exam: Present: normal external ear exam - Neck Neck exam: Present: normal inspection - Respiratory Respiratory exam: Present: clear to auscultation bilaterally. Absent: accessory muscle use - Cardiovascular Cardiovascular exam: Present: regular rate and rhythm, systolic murmur, tachycardia - GI/Abdominal GI/Abdominal exam: Present: normal bowel sounds, other (Colostomy). Absent: distended - Extremities Exam Extremities exam: Present: normal inspection, normal capillary refill. Absent: edema - Back Exam Back exam: Present: normal inspection - Neurological Exam Neurological exam: Present: alert, oriented X3 - Psychiatric Psychiatric exam: Present: normal affect, normal mood - Skin Skin exam: Present: normal color, warm. Absent: cyanosis Result/EKG - Labs CBC & BMP: 05/23/16 04:10 05/23/16 11:44 Lab Results: I have reviewed the past 24 hour labs Labs: Laboratory Results - last 24 hr 05/22/16 05/23/16 05/23/16 03:45 04:10 04:10 WBC 12.7 H RBC 3.71 L D Hgb 10.8 L D Hct 33.5 L MCV 90.3 MCH 29 MCHC 32.2 RDW 16.2 Plt Count 157 MPV 10.6 Neut % (Auto) 84.1 H Lymph % (Auto) 5.7 L [place] % (Auto) 7.5 Eos % (Auto) 0.6 Baso % (Auto) 0.1 Neut # (Auto) 10.7 H Lymph # (Auto) 0.7 L [place] # (Auto) 1.0 H Eos # (Auto) 0.1 Baso # (Auto) 0.0 Immature Gran % 2.0 Nucleated RBC % 0.0 Immature Gran # 0.26 Nucleated RBCs # 0.00 Sodium 145 Potassium 3.3 L Chloride 111 H Carbon Dioxide 26 Anion Gap 11.3 BUN 15 Creatinine 0.30 L GFR Calculation 123 BUN/Creatinine Ratio 50.00 H Glucose 119 H Calculated Osmolality 289.7 Calcium 7.0 L Phosphorus 1.4 L Magnesium 2.0 Blood Type O POSITIVE Antibody Screen Negative Crossmatch See Detail 05/23/16 11:44 WBC RBC Hgb Hct MCV MCH MCHC RDW Plt Count MPV Neut % (Auto) Lymph % (Auto) [place] % (Auto) Eos % (Auto) Baso % (Auto) Neut # (Auto) Lymph # (Auto) [place] # (Auto) Eos # (Auto) Baso # (Auto) Immature Gran % Nucleated RBC % Immature Gran # Nucleated RBCs # Sodium Potassium 3.6 Chloride Carbon Dioxide Anion Gap BUN Creatinine GFR Calculation BUN/Creatinine Ratio Glucose Calculated Osmolality Calcium Phosphorus Magnesium Blood Type Antibody Screen Crossmatch - EKG EKG results: interpreted by me Quality Measures - VTE Contraindication to Pharmacological VTE Prophylaxis: High Risk of Bleeding
[2016-05-23] MEDS: FAT EMULSION 20% IV SCH (14:06)
[2016-05-23] MEDS: TRACE ELEMENTS (5) 1 ML, MULTIVITAMIN INJ 10 ML, MAGNESIUM SULF INJ 2 GM in AMINO ACIDS... IV SCH (17:28)
[2016-05-23] MEDS: METOPROLOL TARTRATE 50 MG TABLET PO SCH (21:14)
[2016-05-23] MEDS: cefTRIAXone 1,000 MG in SODIUM CHLORIDE 0.9% 100 ML IV SCH (21:15)
[2016-05-24] MEDS: metroNIDAZOLE INJ 500 MG in PREMIX 1 EACH IV SCH ×3 (01:04→18:38)
[2016-05-24] MEDS: MORPHINE 2 MG/1 ML SYRINGE IV PRN ×2 (01:34→11:57)
[2016-05-24] MEDS: ONDANSETRON 4 MG/2 ML VIAL IV PRN (01:35)
[2016-05-24 04:14] LABS: Basophils % 0.2 % (0.0-0.8); Eosinophils # 0.1 10*3/uL (0.0-0.87); Eosinophils % 0.7 % (0.00-10.9); Hematocrit 35.2 VOL% (35.7-47.0); Hemoglobin 11.5 GM/DL (12.0-16.0); Immature Granulocytes Absolute 0.24 #; Lymphocytes # 0.7 10*3/uL (1.4-4.0); Lymphocytes % 5.4 % (21.3-54.2); Mean Corpuscular HGB Conc 32.7 GM/DL (32-36); Mean Corpuscular Hemoglobin 29 PG (27-34); Mean Corpuscular Volume 88.2 FL (87-102); Mean Platelet Volume 10.6 FL (9.6-12.0); Monocytes # 0.9 10*3/uL (0.11-0.8); Monocytes % 7.3 % (1.7-12.7); Neutrophils # 10.2 10*3/uL (1.4-7.4); Neutrophils % 84.4 % (38.7-73.9); Platelet Count 177 T/CUMM (130-400); Red Blood Count 3.99 MC/CUMM (3.8-5.5); Red Cell Distribution Width 15.9 % (9.3-17.3); White Blood Count 12.1 T/CUMM (4-12)
[2016-05-24] MEDS: SODIUM CHLORIDE 0.9% 1,000 ML IV SCH ×3 (05:25→20:08)
[2016-05-24 05:56] LABS: Calcium 7.1 MG/DL (8.5-10.1); Magnesium 1.9 MG/DL (1.8-2.4); Osmolality,Calculated 281.1 MOS/KG (273-304); Potassium 3.3 MMOL/L (3.5-5.1)
--- NOTE | 2016-05-24 06:10 | Family Practice Progress Note ---
Family Practice - PN: Subj Interval history: Patient is doing quite well according to nursing staff. She has remained afebrile and her vital signs are stable. Her phosphorus still bit low this morning we will give her another bolus of phosphorus. I think she can probably go to the to a monitored bed. She denies any pain or discomfort this morning Exam (Progress Note) - Constitutional Vitals: Period Temp Pulse Resp BP Sys/Timmons Pulse Ox Last 24 Hr 98.2 F-99.4 F 105-115 16-27 94-165/70-91 99-100 Exam: Objective reveals a thin black female is awake alert and able answer questions appropriately. Patient states she is still hungry. Cardiovascular: Heart rates regular without murmurs gallops Respiratory: Lungs clear to auscultation bilaterally. Abdomen: Patient has no significant tenderness and bowel sounds are present. She is a very small amount of drainage from her colostomy bag. Results - Labs CBC & BMP: 05/24/16 04:08 05/24/16 04:08 Lab Results: I have reviewed the past 24 hour labs Assessment and Plan (1) Metastatic adenocarcinoma Status: Acute Assessment and plan: 05/23/2016: Further evaluation of her adenocarcinoma is in progress. 05/24/2016: This will require further investigation. Current Visit: Yes (2) Status post colostomy Status: Chronic Assessment and plan: 05/23/2016: Patient is doing well postop. 05/24/2016: Patient's doing quite well postop, think she can go to the floor with monitor. Current Visit: Yes Quality Measures - VTE Contraindication to Pharmacological VTE Prophylaxis: High Risk of Bleeding
[2016-05-24] MEDS ORDERED: SODIUM PHOSPHATE INJ 30 MMOL in SODIUM CHLORIDE 0.9% 250 ML IV ONE (09:00)
[2016-05-24] MEDS: METOPROLOL TARTRATE 50 MG TABLET PO SCH ×2 (09:40→21:16)
[2016-05-24] MEDS: PANTOPRAZOLE 40 MG VIAL IV SCH (09:43)
--- NOTE | 2016-05-24 11:12 | Event Note ---
05/24/2016. Patient is on the floor now and she is stable at this time minimal drainage from the gastrostomy tube. Incisions look clean and dry. Probably could stand to start getting her out of bed and get some physical therapy going at some point. Still receiving hyper out but is alert and awake has some hypoactive bowel sounds present.
--- NOTE | 2016-05-24 13:23 | Cardiology Progress Note ---
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 Persistent sinus tachycardia, not symptomatic. Blood pressure is normal, she is adequately perfused. -ST. Not symptomatic. Underlying causes are being addressed. She is getting TPN. Was transfused for anemia. Thyroid function normal. No cardiomyopathy on echo, no pericardial effusion. -Continue metoprolol 50 mg twice daily. Current Visit: Yes (2) Metastatic adenocarcinoma Status: Acute Current Visit: Yes (3) Sinus tachycardia Status: Acute Current Visit: Yes (4) Anemia Status: Acute Current Visit: Yes Cardiology - PN: Subj Interval history: Sinus tachycardia 100 110 bpm. Besides PACs, no other significant arrhythmia was documented. She is feeling better. Still on TPN. Exam (Progress Note) - Constitutional Vitals: Period Temp Pulse Resp BP Sys/Timmons Pulse Ox Last 24 Hr 98.2 F-98.8 F 103-115 16-27 94-165/67-91 96-100 General appearance: normal weight, no acute distress - Head Head exam: Present: normal inspection - Eye Eye exam: Absent: conjunctival injection Pupils: Absent: dilated - ENT ENT exam: Present: normal external ear exam - Neck Neck exam: Present: normal inspection - Respiratory Respiratory exam: Present: clear to auscultation bilaterally. Absent: wheezes - Cardiovascular Cardiovascular exam: Present: systolic murmur, tachycardia - GI/Abdominal GI/Abdominal exam: Present: normal bowel sounds, other (Colostomy). Absent: distended - Extremities Exam Extremities exam: Present: normal inspection, normal capillary refill - Neurological Exam Neurological exam: Present: alert, oriented X3 - Psychiatric Psychiatric exam: Present: normal affect, normal mood - Skin Skin exam: Present: normal color, warm. Absent: cyanosis Result/EKG - Labs CBC & BMP: 05/24/16 04:08 05/24/16 04:08 Lab Results: I have reviewed the past 24 hour labs Labs: Laboratory Results - last 24 hr 05/24/16 05/24/16 05/24/16 04:08 04:08 04:08 WBC 12.1 H RBC 3.99 Hgb 11.5 L Hct 35.2 L MCV 88.2 MCH 29 MCHC 32.7 RDW 15.9 Plt Count 177 MPV 10.6 Neut % (Auto) 84.4 H Lymph % (Auto) 5.4 L [place] % (Auto) 7.3 Eos % (Auto) 0.7 Baso % (Auto) 0.2 Neut # (Auto) 10.2 H Lymph # (Auto) 0.7 L [place] # (Auto) 0.9 H Eos # (Auto) 0.1 Baso # (Auto) 0.0 Immature Gran % 2.0 Nucleated RBC % 0.0 Immature Gran # 0.24 Nucleated RBCs # 0.00 Sodium 142 Potassium 3.3 L Chloride 109 H Carbon Dioxide 25 Anion Gap 11.3 BUN 11 Creatinine 0.20 L GFR Calculation 145 BUN/Creatinine Ratio 55.00 H Glucose 102 Calculated Osmolality 281.1 Calcium 7.1 L Phosphorus 2.3 L Magnesium 1.9 - EKG EKG results: interpreted by il Quality Measures - VTE Contraindication to Pharmacological VTE Prophylaxis: High Risk of Bleeding
[2016-05-24] MEDS: FAT EMULSION 20% IV SCH (14:05)
[2016-05-24] MEDS: cefTRIAXone 1,000 MG in SODIUM CHLORIDE 0.9% 100 ML IV SCH (21:20)
[2016-05-24] MEDS: TRACE ELEMENTS (5) 1 ML, MULTIVITAMIN INJ 10 ML, MAGNESIUM SULF INJ 2 GM in AMINO ACIDS... IV SCH (22:06)
[2016-05-25] MEDS: TRACE ELEMENTS (5) 1 ML, MULTIVITAMIN INJ 10 ML, MAGNESIUM SULF INJ 2 GM in AMINO ACIDS... IV SCH (01:00)
[2016-05-25] MEDS: metroNIDAZOLE INJ 500 MG in PREMIX 1 EACH IV SCH ×3 (01:04→16:47)
[2016-05-25] MEDS: SODIUM CHLORIDE 0.9% 1,000 ML IV SCH ×2 (04:11→16:47)
[2016-05-25 05:23] LABS: Basophils % 0.2 % (0.0-0.8); Eosinophils # 0.1 10*3/uL (0.0-0.87); Hematocrit 35.8 VOL% (35.7-47.0); Hemoglobin 11.9 GM/DL (12.0-16.0); Immature Granulocytes % 3.2 %; Immature Granulocytes Absolute 0.35 #; Lymphocytes # 0.7 10*3/uL (1.4-4.0); Lymphocytes % 6.5 % (21.3-54.2); Mean Corpuscular HGB Conc 33.2 GM/DL (32-36); Mean Corpuscular Hemoglobin 29 PG (27-34); Mean Corpuscular Volume 86.7 FL (87-102); Mean Platelet Volume 10.2 FL (9.6-12.0); Monocytes % 9.3 % (1.7-12.7); Neutrophils # 8.7 10*3/uL (1.4-7.4); Neutrophils % 79.8 % (38.7-73.9); Platelet Count 217 T/CUMM (130-400); Red Blood Count 4.13 MC/CUMM (3.8-5.5); Red Cell Distribution Width 15.5 % (9.3-17.3)
[2016-05-25 05:52] LABS: Calcium 7.2 MG/DL (8.5-10.1); Magnesium 1.7 MG/DL (1.8-2.4); Phosphorous 2.7 MG/DL (2.5-4.9); Potassium 3.2 MMOL/L (3.5-5.1)
--- NOTE | 2016-05-25 07:33 | Oncology Progress Note ---
Oncology Subjective PN Interval history: Pathology pending. I expect that whenever this malignancy turns out to be, the treatment will be palliative. I will check back again tomorrow. Exam - Constitutional Vitals: Period Temp Pulse Resp BP Sys/Timmons Pulse Ox Last 24 Hr 98.8 F-99.3 F 100-106 18-20 112-144/68-84 96-98 Results - Labs CBC & BMP: 05/25/16 04:42 05/25/16 04:42 Quality Measures - VTE Contraindication to Pharmacological VTE Prophylaxis: High Risk of Bleeding
[2016-05-25] MEDS: PANTOPRAZOLE 40 MG VIAL IV SCH (10:24)
[2016-05-25] MEDS: METOPROLOL TARTRATE 50 MG TABLET PO SCH ×2 (10:28→20:49)
--- NOTE | 2016-05-25 14:38 | Cardiology Progress Note ---
I, Oksana Pak RN, am scribing for, and in the presence of, Donald Hernandez MD 14:38. Assessment and Plan - Time spent with patient Time spent with patient: Greater than 30 minutes (1) Sinus tachycardia Status: Acute Assessment and plan: The patient has a mild physiologic tachycardia related to all of her other medical issues. She is completely asymptomatic and clinically she is well compensated. Pulse rate has been 85-115 bpm. for now I would continue treating her underlying issues. We can continue the metoprolol for now. Otherwise, I don't have anything to add at this time. I am going to drop off of her case. I can be of further assistance please call. Current Visit: Yes (2) Anemia Status: Acute Current Visit: Yes (3) Metastatic adenocarcinoma Status: Acute Current Visit: Yes Cardiology - PN: Subj Interval history: PRIMARY DIVERSIONAL THERAPIST: DR. VOSS (NEW) PCP: DR. DERICK SHANKS Ms. Schneider is a 61-year-old female with gastric cancer. During this admission she has undergone partial gastric resection of the mid body of the stomach, stapled jejunojejunostomy, loop colostomy, and gastrostomy on 05/20/[address] Luis A WALLACE. Cancer is metastatic and the surgery was performed palliatively. Perioperatively she has had a sinus tachycardia for which cardiology has been consulted and followed. Echocardiogram 05/22/16 with normal systolic and diastolic function, LV ejection fraction 60%, mild pulmonary hypertension with a PA pressure of 45 mmHg. Tachycardia has been mild and asymptomatic. Pulse rate no greater than 115 bpm. Labs reviewed. Stable H&H. Hypokalemic at 3.2 and hypomagnesemic at 1.7. She is receiving TPN. Potassium is being replaced per IV protocol as needed. Systolic BP 125-140 mmHg. She is awake and alert this morning. Slightly tachycardic during exam, but she contributes this to recently having used incentive spirometer at bedside. No CP , SAB, or other anginal complaint. She is ambulating with PT assist, and she reports this is going fairly well. Current Medications Dextrose/Water (D50) 25 gm IV PRN PRN PRN Reason: Hypoglycemia with IV access Glucagon () 1 mg IM PRN PRN PRN Reason: Hypoglycemia w/o IV access Sodium Chloride (Ns) 1,000 mls @ 125 mls/hr IV .Q8H [facility] Last Admin: 05/25/16 04:11 Dose: Not Given Potassium Chloride 10 meq/ (Premix) 100 mls @ 100 mls/hr IV .PER PROTOCOL PRN; Protocol PRN Reason: Per Protocol Last Infusion: 05/22/16 09:05 Dose: Infused Ceftriaxone Sodium 1,000 mg/ (Sodium Chloride) 100 mls @ 200 mls/hr IV Q24H [facility] Last Admin: 05/24/16 21:20 Dose: 100 mls/hr Fat Emulsion Intravenous (Intralipid 20%) 125 mls @ 25 mls/hr IV Q24H [facility] Last Admin: 05/24/16 14:05 Dose: 25 mls/hr Metronidazole/Sodium Chloride (500 mg/ Premix) 100 mls @ 100 mls/hr IV Q8H [facility] Last Admin: 05/25/16 10:28 Dose: 100 mls/hr Potassium Chloride 10 meq/ (Premix) 100 mls @ 100 mls/hr IV .PER PROTOCOL PRN; Protocol PRN Reason: Per Protocol Potassium Chloride 20 meq/ (Premix) 100 mls @ 50 mls/hr IV .PER PROTOCOL PRN; Protocol PRN Reason: Per Protocol Last Infusion: 05/23/16 16:13 Dose: Infused Dextrose/Water (D10) 1,000 mls @ 42 mls/hr IV .[id number] PRN PRN Reason: TPN/PPN interruption Chromium/Copper/Manganese/Seleni/Zn 1 ml/ Multivitamins/Minerals 10 ml/ Magnesium Sulfate 2 gm/ Amino Acids/Electrolytes/Dextrose 2,015 mls @ 65 mls/ hr IV .Q24H [facility] PRN Reason: Protocol Stop: 05/25/16 16:59 Last Admin: 05/25/16 01:00 Dose: 65 mls/hr Potassium Chloride 10 meq/ (Premix) 100 mls @ 100 mls/hr IV .PER PROTOCOL PRN; Protocol PRN Reason: Per Protocol Chromium/Copper/Manganese/Seleni/Zn 1 ml/ Multivitamins/Minerals 10 ml/ Potassium Chloride 20 meq/ Magnesium Sulfate 2 gm/ Amino Acids/Electrolytes/ Dextrose 2,025 mls @ 85 mls/hr IV .[id number] [facility] PRN Reason: Protocol Metoprolol Tartrate (Lopressor Tab) 50 mg PO BID [facility] Last Admin: 05/25/16 10:28 Dose: 50 mg Morphine Sulfate () 2 mg IV Q2H PRN PRN Reason: Pain Severe (8-10) Last Admin: 05/24/16 11:57 Dose: 2 mg Ondansetron HCl (Zofran Inj) 4 mg IV Q4H PRN PRN Reason: Nausea/Vomiting Last Admin: 05/24/16 01:35 Dose: 4 mg Pantoprazole Sodium (Protonix Inj) 40 mg IV DAILY [facility] Last Admin: 05/25/16 10:24 Dose: 40 mg Promethazine HCl (Phenergan Inj) 25 mg IM Q4H PRN PRN Reason: Nausea/Vomiting Exam (Progress Note) - Constitutional Vitals: Period Temp Pulse Resp BP Sys/Timmons Pulse Ox Last 24 Hr 98.7 F-99.3 F 100-108 18-20 104-143/68-84 96-98 Exam: General appearance: normal weight, no acute distress - Head Head exam: Present: normal inspection - Eye Eye exam: Absent: conjunctival injection Pupils: Absent: dilated - ENT ENT exam: Present: normal external ear exam - Neck Neck exam: Present: normal inspection. Absent tenderness, mass - Respiratory Respiratory exam: Present: clear to auscultation bilaterally. Absent: wheezes, rhonchi, stridor - Cardiovascular Cardiovascular exam: Present: systolic murmur, tachycardia. Absent: Irregular rhythm, bradycardia - GI/Abdominal GI/Abdominal exam: Present: normal bowel sounds, other (Colostomy). Absent: distended, firm, tender - Extremities Exam Extremities exam: Present: normal inspection, normal capillary refill - Neurological Exam Neurological exam: Present: alert, oriented X3 - Psychiatric Psychiatric exam: Present: normal affect, normal mood - Skin Skin exam: Present: normal color, warm. Absent: cyanosis, diaphoresis Result/EKG - Labs CBC & BMP: 05/25/16 04:42 05/25/16 04:42 Lab Results: I have reviewed the past 24 hour labs Labs: Laboratory Results - last 24 hr 05/25/16 05/25/16 05/25/16 04:42 04:42 04:42 WBC 11.0 RBC 4.13 Hgb 11.9 L Hct 35.8 MCV 86.7 L MCH 29 MCHC 33.2 RDW 15.5 Plt Count 217 D MPV 10.2 Neut % (Auto) 79.8 H Lymph % (Auto) 6.5 L [place] % (Auto) 9.3 Eos % (Auto) 1.0 Baso % (Auto) 0.2 Neut # (Auto) 8.7 H Lymph # (Auto) 0.7 L [place] # (Auto) 1.0 H Eos # (Auto) 0.1 Baso # (Auto) 0.0 Immature Gran % 3.2 Nucleated RBC % 0.0 Immature Gran # 0.35 Nucleated RBCs # 0.00 Sodium 143 Potassium 3.2 L Chloride 108 H Carbon Dioxide 27 Anion Gap 11.2 BUN 11 Creatinine 0.20 L GFR Calculation 147 BUN/Creatinine Ratio 55.00 H Glucose 108 H Calculated Osmolality 284.0 Calcium 7.2 L Phosphorus 2.7 Magnesium 1.7 L Prealbumin 7.0 L Triglycerides 54 - EKG EKG results: interpreted by me EKG shows: tachycardia (Sinus tachycardia) Quality Measures - VTE Contraindication to Pharmacological VTE Prophylaxis: High Risk of Bleeding Mary Garcia Michael, MD, personally performed the services described in this documentation, ascribed by Oksana Pak RN in my presence, and it is both accurate and complete [id number] .
--- NOTE | 2016-05-25 14:39 | Event Note ---
This note is a late entry. I saw the patient early this morning. She looked and felt much better. She is afebrile with stable vital signs. Her abdomen is benign nondistended and nontender. We will start liquids and continue TPN for now. We need to get her up out of bed with physical therapy. Pathology is pending.
[2016-05-25] MEDS: FAT EMULSION 20% IV SCH (16:28)
[2016-05-25] MEDS: POTASSIUM CHLORIDE IV SCH (16:29)
[2016-05-25] MEDS: TRACE ELEMENTS IV SCH (16:29)
[2016-05-25] MEDS: MULTIVITAMIN IV SCH (16:29)
[2016-05-25] MEDS: [UNRECOGNIZED DRUG - OTHER] IV SCH (16:29)
[2016-05-25] MEDS: cefTRIAXone 1,000 MG in SODIUM CHLORIDE 0.9% 100 ML IV SCH (20:49)
--- NOTE | 2016-05-25 21:13 | Internal Med Progress Note ---
Assessment and Plan (1) Anorexia Status: Chronic Current Visit: Yes (2) Weight loss Status: Chronic Current Visit: Yes (3) Nutritional deficiency Status: Chronic Current Visit: Yes (4) Hypokalemia Status: Inactive Current Visit: Yes (5) Duodenal obstruction Status: Chronic Current Visit: Yes (6) Status post colostomy Status: Chronic Current Visit: Yes (7) Metastatic adenocarcinoma Status: Acute Current Visit: Yes (8) Sinus tachycardia Status: Acute Current Visit: Yes Internal Medicine - PN: Subj Interval history: Ms. 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 She didn't like the food changes and stopped eating the food there. She has lost about 25 pounds since then. Her family had her worked up in [place] for cancer with uncertain findings. Requested records during clinic visit at [facility]. She came to clinic to [facility] in late April, then came back Wednesday of this week. She was admitted directly to hospital. She had lost five pounds in only a couple weeks. However, after receiving results of current CT, this case is surgical. Dr. Gunn, III was consulted to further evaluate. Surgery reveals cancer with mets (adenocarcinoma) of uncertain etiology. Discussed with family. Surgery resulted in debulking the cancer as a palliative measure. She did well with surgery. Postsurgical intubation/vent support in ICU. Today, , she is extubated and awake. She knows she has cancer. She denies pain. Had added Amiodarone to help with sinus tachycardia, but not very effective. Will consult Dr. Rodriguez to help with tachycardia. Wednesday, she actually looks much better, but heart rate still too fast. Wednesday, she reports feeling better. On Med Surg floor. Metoprolol added to control heart rate, which is still rapid. Discussed with her that she has metastatic disease. Sister with her in room. Exam (Progress Note) - Constitutional Vitals: Period Temp Pulse Resp BP Sys/Timmons Pulse Ox Last 24 Hr 98.7 F-99.2 F 100-108 18-20 94-117/63-76 98-98 Exam: General appearance: no acute distress; awake and alert - Respiratory Respiratory exam: Present: clear to auscultation bilaterally - Cardiovascular Cardiovascular exam: Present: tachycardia - GI/Abdominal GI/Abdominal exam: Present: surgical bandages in place - Extremities Exam Extremities exam: Absent: edema - Skin Skin exam: Present: warm, dry Vitals reviewed. Results - Labs CBC & BMP: 05/25/16 04:42 05/25/16 04:42 Quality Measures - VTE Contraindication to Pharmacological VTE Prophylaxis: High Risk of Bleeding
[2016-05-25] MEDS ORDERED: POTASSIUM CHLORIDE 20 MEQ PACK PO ONE (23:23)
[2016-05-26] MEDS: metroNIDAZOLE INJ 500 MG in PREMIX 1 EACH IV SCH ×3 (00:09→17:08)
[2016-05-26] MEDS: SODIUM CHLORIDE 0.9% 1,000 ML IV SCH ×3 (00:18→10:15)
[2016-05-26] MEDS: MORPHINE 2 MG/1 ML SYRINGE IV PRN ×2 (02:41→20:50)
[2016-05-26 03:10] LABS: Calcium 7.2 MG/DL (8.5-10.1); Potassium 3.5 MMOL/L (3.5-5.1)
--- NOTE | 2016-05-26 07:08 | Oncology Progress Note ---
Oncology Subjective PN Interval history: Still waiting on the pathology report. Exam - Constitutional Vitals: Period Temp Pulse Resp BP Sys/Timmons Pulse Ox Last 24 Hr 98.7 F-99.2 F 102-108 18-20 89-105/55-68 97-99 Results - Labs CBC & BMP: 05/25/16 04:42 05/26/16 02:17 Quality Measures - VTE Contraindication to Pharmacological VTE Prophylaxis: High Risk of Bleeding
[2016-05-26] MEDS: METOPROLOL TARTRATE 50 MG TABLET PO SCH ×2 (09:17→20:05)
[2016-05-26] MEDS: PANTOPRAZOLE 40 MG VIAL IV SCH (09:18)
[2016-05-26] MEDS: MULTIVITAMIN IV SCH ×2 (09:20→17:14)
[2016-05-26] MEDS: [UNRECOGNIZED DRUG - OTHER] IV SCH ×2 (09:20→17:14)
[2016-05-26] MEDS: TRACE ELEMENTS IV SCH ×2 (09:20→17:14)
[2016-05-26] MEDS: POTASSIUM CHLORIDE IV SCH ×2 (09:20→17:14)
--- NOTE | 2016-05-26 14:41 | Event Note ---
Subjective: Patient is postop day #6. She was seen and examined by Dr. Gunn separately at which time he recommended increase activity, soft diet and discontinuation of the Heath catheter. This jm been done in the interim, and the patient is sitting up in a chair at the time of my visit reporting increased activity today which she tolerated well. Patient reports she has tolerated p.o. intake without nausea, vomiting or diarrhea today. She continues with bilious drainage from her G-tube. Soft bowel movement today. Objective: Temperature 100.0 overnight. General: Cachectic HEENT: Atraumatic normocephalic. Heart: Regular rate and rhythm Lungs: Clear to auscultation bilaterally Abdomen: Dressings are clean, dry and intact with G-tube intact with bilious drainage. Recorded output overnight 150 mL. Assessment plan: Patient is stable at this time. She has some increasing activity and oral intake well. Continue advancing her diet as tolerated while monitoring G-tube output. Pathology pending. Patient has been seen and examined independently by Dr. Kayden Gunn III.
[2016-05-26] MEDS: FAT EMULSION 20% IV SCH (15:10)
[2016-05-26] MEDS: cefTRIAXone 1,000 MG in SODIUM CHLORIDE 0.9% 100 ML IV SCH (20:05)
--- NOTE | 2016-05-26 20:15 | Internal Med Progress Note ---
Assessment and Plan (1) Nutritional deficiency Status: Chronic Current Visit: Yes (2) Duodenal obstruction Status: Chronic Current Visit: Yes (3) Status post colostomy Status: Chronic Current Visit: Yes (4) Metastatic adenocarcinoma Status: Acute Current Visit: Yes (5) Sinus tachycardia Status: Acute Current Visit: Yes Internal Medicine - PN: Subj Interval history: Ms. 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 She didn't like the food changes and stopped eating the food there. She has lost about 25 pounds since then. Her family had her worked up in [place] for cancer with uncertain findings. Requested records during clinic visit at [facility]. She came to clinic to [facility] in late April, then came back Wednesday of this week. She was admitted directly to hospital. She had lost five pounds in only a couple weeks. However, after receiving results of current CT, this case is surgical. Dr. Gunn, III was consulted to further evaluate. Surgery reveals cancer with mets (adenocarcinoma) of uncertain etiology. Discussed with family. Surgery resulted in debulking the cancer as a palliative measure. She did well with surgery. Postsurgical intubation/vent support in ICU. Today, , she is extubated and awake. She knows she has cancer. She denies pain. Had added Amiodarone to help with sinus tachycardia, but not very effective. Will consult Dr. Rodriguez to help with tachycardia. Wednesday, she actually looks much better, but heart rate still too fast. Wednesday, she reports feeling better. On Med Surg floor. Metoprolol added to control heart rate, which is still rapid. Discussed with her that she has metastatic disease. Sister with her in room. Wednesday, she is feeling much better and sitting up in room when seen. Exam (Progress Note) - Constitutional Vitals: Period Temp Pulse Resp BP Sys/Timmons Pulse Ox Last 24 Hr 98.3 F-100.0 F 102-106 17-20 89-122/51-68 94-99 Exam: General appearance: no acute distress; awake and alert - Respiratory Respiratory exam: Present: clear to auscultation bilaterally - Cardiovascular Cardiovascular exam: Present: tachycardia - GI/Abdominal GI/Abdominal exam: Present: surgical bandages in place - Extremities Exam Extremities exam: Absent: edema - Skin Skin exam: Present: warm, dry Vitals reviewed. Results - Labs CBC & BMP: 05/25/16 04:42 05/26/16 02:17 Quality Measures - VTE Contraindication to Pharmacological VTE Prophylaxis: High Risk of Bleeding
[2016-05-27] MEDS: metroNIDAZOLE INJ 500 MG in PREMIX 1 EACH IV SCH ×3 (00:31→18:08)
[2016-05-27] MEDS: SODIUM CHLORIDE 0.9% 1,000 ML IV SCH ×2 (00:31→17:24)
[2016-05-27 05:30] LABS: Basophils % 0.3 % (0.0-0.8); Eosinophils # 0.1 10*3/uL (0.0-0.87); Eosinophils % 0.8 % (0.00-10.9); Hematocrit 33.1 VOL% (35.7-47.0); Hemoglobin 10.7 GM/DL (12.0-16.0); Immature Granulocytes Absolute 1.31 #; Lymphocytes # 0.8 10*3/uL (1.4-4.0); Lymphocytes % 6.8 % (21.3-54.2); Mean Corpuscular HGB Conc 32.3 GM/DL (32-36); Mean Corpuscular Hemoglobin 29 PG (27-34); Mean Platelet Volume 10.7 FL (9.6-12.0); Monocytes % 8.1 % (1.7-12.7); Neutrophils # 8.7 10*3/uL (1.4-7.4); Platelet Count 296 T/CUMM (130-400); Red Blood Count 3.76 MC/CUMM (3.8-5.5); Red Cell Distribution Width 15.6 % (9.3-17.3)
[2016-05-27 06:01] LABS: Burr Cells Slight; Eosinophils 1 % (0-10); Hypochromasia 1+; Lymphocytes 8 % (20-55); Ovalocytes Slight; Platelet Estimate Adequate; Segmented Neutrophils 86 % (50-85); Total Cells Counted 100
[2016-05-27 06:07] LABS: Calcium 7.2 MG/DL (8.5-10.1); Magnesium 1.9 MG/DL (1.8-2.4); Potassium 3.8 MMOL/L (3.5-5.1)
--- NOTE | 2016-05-27 07:55 | Oncology Progress Note ---
Oncology Subjective PN Interval history: The pathology report is still pending. Surgery was done on May 20, 2016. Exam - Constitutional Vitals: Period Temp Pulse Resp BP Sys/Timmons Pulse Ox Last 24 Hr 98.3 F-99.5 F 92-112 17-20 108-127/61-74 94-99 Results - Labs CBC & BMP: 05/28/16 02:56 05/28/16 02:56 Quality Measures - VTE Contraindication to Pharmacological VTE Prophylaxis: High Risk of Bleeding
--- NOTE | 2016-05-27 08:13 | Event Note ---
She looks and feels well. She has had some low-grade temperature and has less tachycardia. She has been tolerating some liquids but I kept her G-tube on intermittent suction to avoid gastric distention because of her massively distended proximal stomach. It is been a week and I think we will go ahead and put her G-tube on gravity drainage at this point. We are keeping her on TPN for nutritional support. She may need to go to a swing bed at discharge. Her pathology is pending.
[2016-05-27] MEDS: PANTOPRAZOLE 40 MG VIAL IV SCH (10:15)
[2016-05-27] MEDS: METOPROLOL TARTRATE 100 MG TABLET PO SCH ×2 (10:15→21:02)
[2016-05-27] MEDS: FAT EMULSION 20% IV SCH (15:07)
[2016-05-27] MEDS: ELECTROLYTE CONCENTRATE 40 ML, TRACE ELEMENTS (5) 1 ML, MULTIVITAMIN INJ 10 ML, POTASSI... IV SCH (16:51)
[2016-05-27] MEDS: MORPHINE 2 MG/1 ML SYRINGE IV PRN (21:03)
[2016-05-27] MEDS: cefTRIAXone 1,000 MG in SODIUM CHLORIDE 0.9% 100 ML IV SCH (21:03)
--- NOTE | 2016-05-27 22:26 | Internal Med Progress Note ---
Assessment and Plan (1) Nutritional deficiency Status: Chronic Current Visit: Yes (2) Duodenal obstruction Status: Chronic Current Visit: Yes (3) Status post colostomy Status: Chronic Current Visit: Yes (4) Metastatic adenocarcinoma Status: Acute Current Visit: Yes (5) Sinus tachycardia Status: Acute Current Visit: Yes Internal Medicine - PN: Subj Interval history: Ms. 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 She didn't like the food changes and stopped eating the food there. She has lost about 25 pounds since then. Her family had her worked up in [place] for cancer with uncertain findings. Requested records during clinic visit at [facility]. She came to clinic to [facility] in late April, then came back Wednesday of this week. She was admitted directly to hospital. She had lost five pounds in only a couple weeks. However, after receiving results of current CT, this case is surgical. Dr. Gunn, III was consulted to further evaluate. Surgery reveals cancer with mets (adenocarcinoma) of uncertain etiology. Discussed with family. Surgery resulted in debulking the cancer as a palliative measure. She did well with surgery. Postsurgical intubation/vent support in ICU. Today, , she is extubated and awake. She knows she has cancer. She denies pain. Had added Amiodarone to help with sinus tachycardia, but not very effective. Will consult Dr. Rodriguez to help with tachycardia. Wednesday, she actually looks much better, but heart rate still too fast. Wednesday, she reports feeling better. On Med Surg floor. Metoprolol added to control heart rate, which is still rapid. Discussed with her that she has metastatic disease. Sister with her in room. Wednesday, she is feeling much better and sitting up in room when seen. Wednesday, she continues to improve. Exam (Progress Note) - Constitutional Vitals: Period Temp Pulse Resp BP Sys/Timmons Pulse Ox Last 24 Hr 98.1 F-100.0 F 92-106 18-20 109-127/64-74 97-99 Exam: General appearance: no acute distress; awake and alert - Respiratory Respiratory exam: Present: clear to auscultation bilaterally - Cardiovascular Cardiovascular exam: Present: tachycardia - GI/Abdominal GI/Abdominal exam: Present: surgical bandages in place - Extremities Exam Extremities exam: Absent: edema - Skin Skin exam: Present: warm, dry Vitals reviewed. Results - Labs CBC & BMP: 05/27/16 04:55 05/27/16 04:55 Quality Measures - VTE Contraindication to Pharmacological VTE Prophylaxis: High Risk of Bleeding
[2016-05-27] MEDS: TRACE ELEMENTS IV SCH (23:38)
[2016-05-27] MEDS: [UNRECOGNIZED DRUG - OTHER] IV SCH (23:38)
[2016-05-27] MEDS: MULTIVITAMIN IV SCH (23:38)
[2016-05-27] MEDS: POTASSIUM CHLORIDE IV SCH (23:38)
[2016-05-28] MEDS: metroNIDAZOLE INJ 500 MG in PREMIX 1 EACH IV SCH ×3 (00:10→16:37)
[2016-05-28 04:46] LABS: Basophils % 0.3 % (0.0-0.8); Eosinophils # 0.1 10*3/uL (0.0-0.87); Eosinophils % 0.9 % (0.00-10.9); Hematocrit 33.2 VOL% (35.7-47.0); Hemoglobin 10.8 GM/DL (12.0-16.0); Immature Granulocytes % 10.7 %; Immature Granulocytes Absolute 1.38 #; Lymphocytes # 0.8 10*3/uL (1.4-4.0); Lymphocytes % 5.8 % (21.3-54.2); Mean Corpuscular HGB Conc 32.5 GM/DL (32-36); Mean Corpuscular Hemoglobin 29 PG (27-34); Mean Corpuscular Volume 88.1 FL (87-102); Mean Platelet Volume 10.9 FL (9.6-12.0); Monocytes # 0.8 10*3/uL (0.11-0.8); Monocytes % 6.3 % (1.7-12.7); Neutrophils # 9.8 10*3/uL (1.4-7.4); Platelet Count 310 T/CUMM (130-400); Red Blood Count 3.77 MC/CUMM (3.8-5.5); Red Cell Distribution Width 15.3 % (9.3-17.3); White Blood Count 12.9 T/CUMM (4-12)
[2016-05-28 05:30] LABS: Band Neutrophils 1 % (0-10); Burr Cells Slight; Eosinophils 1 % (0-10); Hypochromasia 1+; Lymphocytes 7 % (20-55); Ovalocytes Slight; Phosphorous 2.8 MG/DL (2.5-4.9); Platelet Estimate Adequate; Prealbumin 8.3 MG/DL (20-40); Segmented Neutrophils 88 % (50-85); Total Cells Counted 100
[2016-05-28 06:09] LABS: Calcium 7.1 MG/DL (8.5-10.1); Osmolality,Calculated 282.1 MOS/KG (273-304); Potassium 4.2 MMOL/L (3.5-5.1)
--- NOTE | 2016-05-28 06:40 | Oncology Progress Note ---
Oncology Subjective PN Interval history: There is still no pathology report on this patient. The surgery was done May 20, 2016. Exam - Constitutional Vitals: Period Temp Pulse Resp BP Sys/Timmons Pulse Ox Last 24 Hr 97.6 F-100.0 F 93-106 16-20 107-125/61-72 97-100 Results - Labs CBC & BMP: 05/28/16 02:56 05/28/16 02:56 Quality Measures - VTE Contraindication to Pharmacological VTE Prophylaxis: High Risk of Bleeding
--- NOTE | 2016-05-28 09:00 | Event Note ---
She is doing well postop. She is tolerating a by mouth diet. She has not had nausea or vomiting. She is not had abdominal distention or abdominal pain and has good colostomy output. Her abdomen is benign and her incision looks good. I see no signs of infection or problems with gastric necrosis or problems with her staple lines. I think that it would be fine to discontinue her TPN and let her try to take more by mouth. If needed in the future her G-tube could be used for enteral nutrition. I think that it is fine to make plans for discharge and I would like to follow her up in the clinic in the next week or so for removal of her skin clips.
--- NOTE | 2016-05-28 09:15 | Oncology Progress Note ---
Oncology Subjective PN Interval history: Ms. Rahel Hennessy managed to get us a pathology report. This is pancreaticobiliary carcinoma. The patient will need to recover from surgery before we would ever consider any formal treatment. I will check back on Wednesday. Call Dr. Da Silva if needed this weekend but there is not much for us to do until after the patient has recovered further. Exam - Constitutional Vitals: Period Temp Pulse Resp BP Sys/Timmons Pulse Ox Last 24 Hr 97.6 F-100.0 F 93-106 16-20 107-125/61-72 91-100 Results - Labs CBC & BMP: 05/28/16 02:56 05/28/16 02:56 Quality Measures - VTE Contraindication to Pharmacological VTE Prophylaxis: High Risk of Bleeding
[2016-05-28] MEDS: METOPROLOL TARTRATE 100 MG TABLET PO SCH ×2 (09:55→20:56)
[2016-05-28] MEDS: PANTOPRAZOLE 40 MG VIAL IV SCH (09:55)
[2016-05-28] MEDS: SODIUM CHLORIDE 0.9% 1,000 ML IV SCH (12:01)
[2016-05-28] MEDS: FAT EMULSION 20% IV SCH (16:37)
[2016-05-28] MEDS: MORPHINE 2 MG/1 ML SYRINGE IV PRN (19:55)
[2016-05-28] MEDS: ELECTROLYTE CONCENTRATE 40 ML, TRACE ELEMENTS (5) 1 ML, MULTIVITAMIN INJ 10 ML, POTASSI... IV SCH (20:01)
[2016-05-28] MEDS: cefTRIAXone 1,000 MG in SODIUM CHLORIDE 0.9% 100 ML IV SCH (20:57)
--- NOTE | 2016-05-28 23:17 | Internal Med Progress Note ---
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 She didn't like the food changes and stopped eating the food there. She has lost about 25 pounds since then. Her family had her worked up in [place] for cancer with uncertain findings. Requested records during clinic visit at [facility]. She came to clinic to [facility] in late April, then came back Wednesday of this week. She was admitted directly to hospital. She had lost five pounds in only a couple weeks. However, after receiving results of current CT, this case is surgical. Dr. Luis A III was consulted to further evaluate. Surgery reveals cancer with mets (adenocarcinoma) of uncertain etiology. Discussed with family. Surgery resulted in debulking the cancer as a palliative measure. She did well with surgery. Postsurgical intubation/vent support in ICU. Today, , she is extubated and awake. She knows she has cancer. She denies pain. Had added Amiodarone to help with sinus tachycardia, but not very effective. Will consult Dr. Rodriguez to help with tachycardia. Wednesday, she actually looks much better, but heart rate still too fast. Wednesday, she reports feeling better. On Med Surg floor. Metoprolol added to control heart rate, which is still rapid. Discussed with her that she has metastatic disease. Sister with her in room. Wednesday, she is feeling much better and sitting up in room when seen. Wednesday, she continues to improve. , she continues to do amazingly well post surgery. Pathology indicates advanced pancreatic cancer. Will discontinue TPN and discharge to home within a day or two after certain she can handle soft solid PO diet without complications. She will follow up with Dr. Luis A III and Dr. Bryan. Exam (Progress Note) - Constitutional Vitals: Period Temp Pulse Resp BP Sys/Timmons Pulse Ox Last 24 Hr 97.6 F-98.9 F 93-102 16-20 95-125/61-69 91-100 Exam: General appearance: no acute distress; awake and alert - Respiratory Respiratory exam: Present: clear to auscultation bilaterally - Cardiovascular Cardiovascular exam: Present: tachycardia - GI/Abdominal GI/Abdominal exam: Present: surgical bandages in place; NG tube - Extremities Exam Extremities exam: Absent: edema - Skin Skin exam: Present: warm, dry Vitals reviewed. Results - Labs CBC & BMP: 05/28/16 02:56 05/28/16 02:56 Quality Measures - VTE Contraindication to Pharmacological VTE Prophylaxis: High Risk of Bleeding
[2016-05-29] MEDS: SODIUM CHLORIDE 0.9% 1,000 ML IV SCH ×4 (03:47→22:28)
[2016-05-29 04:24] LABS: Basophils # 0.1 10*3/uL (0.0-0.2); Basophils % 0.4 % (0.0-0.8); Eosinophils # 0.1 10*3/uL (0.0-0.87); Eosinophils % 0.8 % (0.00-10.9); Hematocrit 31.4 VOL% (35.7-47.0); Hemoglobin 10.4 GM/DL (12.0-16.0); Immature Granulocytes % 4.6 %; Immature Granulocytes Absolute 0.62 #; Lymphocytes # 0.8 10*3/uL (1.4-4.0); Lymphocytes % 6.1 % (21.3-54.2); Mean Corpuscular HGB Conc 33.1 GM/DL (32-36); Mean Corpuscular Hemoglobin 29 PG (27-34); Mean Corpuscular Volume 88.5 FL (87-102); Mean Platelet Volume 10.6 FL (9.6-12.0); Monocytes # 0.8 10*3/uL (0.11-0.8); Monocytes % 6.2 % (1.7-12.7); Neutrophils # 11.2 10*3/uL (1.4-7.4); Neutrophils % 81.9 % (38.7-73.9); Platelet Count 300 T/CUMM (130-400); Red Blood Count 3.55 MC/CUMM (3.8-5.5); Red Cell Distribution Width 15.3 % (9.3-17.3); White Blood Count 13.6 T/CUMM (4-12)
[2016-05-29 04:51] LABS: Band Neutrophils 1 % (0-10); Burr Cells Slight; Eosinophils 1 % (0-10); Hypochromasia 1+; Lymphocytes 8 % (20-55); Ovalocytes Slight; Platelet Estimate Adequate; Segmented Neutrophils 83 % (50-85); Total Cells Counted 100
[2016-05-29 04:56] LABS: Albumin 1.5 G/DL (3.4-5.0); Bilirubin,Total 0.4 MG/DL (0.2-1.0); Calcium 7.5 MG/DL (8.5-10.1); Total Protein 4.6 G/DL (6.4-8.3)
[2016-05-29 04:57] LABS: Osmolality,Calculated 282.1 MOS/KG (273-304); Potassium 4.4 MMOL/L (3.5-5.1)
[2016-05-29] MEDS: METOPROLOL TARTRATE 100 MG TABLET PO SCH ×3 (09:14→20:51)
[2016-05-29] MEDS: PANTOPRAZOLE 40 MG VIAL IV SCH (09:15)
[2016-05-29] MEDS: metroNIDAZOLE INJ 500 MG in PREMIX 1 EACH IV SCH ×3 (09:15→17:47)
--- NOTE | 2016-05-29 10:22 | Event Note ---
She feels well. She is tolerating a by mouth diet and having good ostomy output. Her abdomen is benign. I think that she can be switched over to enteral or by mouth feeding at any time. I do not see evidence of a surgical problem or complication. I will leave discharge planning up to you but I think that she should be fine to be discharged from a surgery standpoint at any time.
[2016-05-29] MEDS ORDERED: SKIN HEALING OINT (AQUAPHOR) 50 GM TUBE TOP PRN (14:18)
[2016-05-29] MEDS: METOPROLOL TARTRATE 25 MG TABLET PO SCH ×2 (15:06→20:49)
--- NOTE | 2016-05-29 15:10 | Internal Med Progress Note ---
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 She didn't like the food changes and stopped eating the food there. She has lost about 25 pounds since then. Her family had her worked up in [place] for cancer with uncertain findings. Requested records during clinic visit at [facility]. She came to clinic to [facility] in late April, then came back Wednesday of this week. She was admitted directly to hospital. She had lost five pounds in only a couple weeks. However, after receiving results of current CT, this case is surgical. Dr. Luis A III was consulted to further evaluate. Surgery reveals cancer with mets (adenocarcinoma) of uncertain etiology. Discussed with family. Surgery resulted in debulking the cancer as a palliative measure. She did well with surgery. Postsurgical intubation/vent support in ICU. Today, , she is extubated and awake. She knows she has cancer. She denies pain. Had added Amiodarone to help with sinus tachycardia, but not very effective. Will consult Dr. Rodriguez to help with tachycardia. Wednesday, she actually looks much better, but heart rate still too fast. Wednesday, she reports feeling better. On Med Surg floor. Metoprolol added to control heart rate, which is still rapid. Discussed with her that she has metastatic disease. Sister with her in room. Wednesday, she is feeling much better and sitting up in room when seen. Wednesday, she continues to improve. , she continues to do amazingly well post surgery. Pathology indicates advanced pancreatic cancer. Will discontinue TPN and discharge to home within a day or two after certain she can handle soft solid PO diet without complications. She will follow up with Dr. Luis A III and Dr. Bryan. Jason, she looks better, but is still not eating very much. Will try for Regency when we can improve her appetite. Currently on Periactin. Exam (Progress Note) - Constitutional Vitals: Period Temp Pulse Resp BP Sys/Timmons Pulse Ox Last 24 Hr 96.9 F-99.2 F 96-108 18-20 95-118/47-68 98-100 Exam: General appearance: no acute distress; awake and alert - Respiratory Respiratory exam: Present: clear to auscultation bilaterally - Cardiovascular Cardiovascular exam: Present: tachycardia - GI/Abdominal GI/Abdominal exam: Present: surgical bandages in place; NG tube - Extremities Exam Extremities exam: Absent: edema - Skin Skin exam: Present: warm, dry Vitals reviewed. Results - Labs CBC & BMP: 05/29/16 03:25 05/29/16 03:25 Quality Measures - VTE Contraindication to Pharmacological VTE Prophylaxis: High Risk of Bleeding
[2016-05-29] MEDS: FAT EMULSION 20% IV SCH (15:13)
[2016-05-29] MEDS: ELECTROLYTE CONCENTRATE 40 ML, TRACE ELEMENTS (5) 1 ML, MULTIVITAMIN INJ 10 ML, POTASSI... IV SCH (17:49)
[2016-05-29] MEDS: cefTRIAXone 1,000 MG in SODIUM CHLORIDE 0.9% 100 ML IV SCH (20:51)
[2016-05-30] MEDS: metroNIDAZOLE INJ 500 MG in PREMIX 1 EACH IV SCH ×3 (00:02→16:36)
[2016-05-30] MEDS: MORPHINE 2 MG/1 ML SYRINGE IV PRN (02:19)
[2016-05-30] MEDS: PANTOPRAZOLE 40 MG VIAL IV SCH (08:55)
[2016-05-30] MEDS: METOPROLOL TARTRATE 25 MG TABLET PO SCH ×2 (09:08→21:21)
[2016-05-30] MEDS: METOPROLOL TARTRATE 100 MG TABLET PO SCH ×2 (09:08→21:21)
[2016-05-30] MEDS: MEGESTROL 400 MG/10 ML UDCUP PO SCH ×2 (11:23→21:21)
--- NOTE | 2016-05-30 13:16 | Internal Med Progress Note ---
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 She didn't like the food changes and stopped eating the food there. She has lost about 25 pounds since then. Her family had her worked up in [place] for cancer with uncertain findings. Requested records during clinic visit at [facility]. She came to clinic to [facility] in late April, then came back Wednesday of this week. She was admitted directly to hospital. She had lost five pounds in only a couple weeks. However, after receiving results of current CT, this case is surgical. Dr. Gunn, III was consulted to further evaluate. Surgery reveals cancer with mets (adenocarcinoma) of uncertain etiology. Discussed with family. Surgery resulted in debulking the cancer as a palliative measure. She did well with surgery. Postsurgical intubation/vent support in ICU. Today, , she is extubated and awake. She knows she has cancer. She denies pain. Had added Amiodarone to help with sinus tachycardia, but not very effective. Will consult Dr. Rodriguez to help with tachycardia. Wednesday, she actually looks much better, but heart rate still too fast. Wednesday, she reports feeling better. On Med Surg floor. Metoprolol added to control heart rate, which is still rapid. Discussed with her that she has metastatic disease. Sister with her in room. Wednesday, she is feeling much better and sitting up in room when seen. Wednesday, she continues to improve. , she continues to do amazingly well post surgery. Pathology indicates advanced pancreatic cancer. Will discontinue TPN and discharge to home within a day or two after certain she can handle soft solid PO diet without complications. She will follow up with Dr. Luis A III and Dr. Bryan. Wednesday, she looks better, but is still not eating very much. Will try for Regency when we can improve her appetite. Currently on Periactin. Wednesday, she continues to improve post surgically, but still not eating well. Will discontinue Periactin and start Megace. Starting albumin. Exam (Progress Note) - Constitutional Vitals: Period Temp Pulse Resp BP Sys/Timmons Pulse Ox Last 24 Hr 97.6 F-99.9 F 91-118 18-20 99-116/59-72 96-100 Exam: General appearance: no acute distress; awake and alert - Respiratory Respiratory exam: Present: clear to auscultation bilaterally - Cardiovascular Cardiovascular exam: Present: tachycardia - GI/Abdominal GI/Abdominal exam: Present: surgical bandages in place; NG tube - Extremities Exam Extremities exam: Absent: edema - Skin Skin exam: Present: warm, dry Vitals reviewed. Results - Labs CBC & BMP: 05/29/16 03:25 05/29/16 03:25 Quality Measures - VTE Contraindication to Pharmacological VTE Prophylaxis: High Risk of Bleeding
[2016-05-30] MEDS: FAT EMULSION 20% IV SCH (14:27)
[2016-05-30] MEDS: SODIUM CHLORIDE 0.9% 1,000 ML IV SCH (16:32)
[2016-05-30] MEDS: ELECTROLYTE CONCENTRATE 40 ML, TRACE ELEMENTS (5) 1 ML, MULTIVITAMIN INJ 10 ML, POTASSI... IV SCH (17:20)
[2016-05-30] MEDS: ALBUMIN 25% 25 GM in PREMIX 1 EACH IV SCH ×2 (17:26→23:20)
[2016-05-30] MEDS: cefTRIAXone 1,000 MG in SODIUM CHLORIDE 0.9% 100 ML IV SCH (21:21)
[2016-05-31] MEDS: MORPHINE 2 MG/1 ML SYRINGE IV PRN ×2 (00:30→20:02)
[2016-05-31] MEDS: metroNIDAZOLE INJ 500 MG in PREMIX 1 EACH IV SCH ×3 (00:44→16:56)
[2016-05-31] MEDS: SODIUM CHLORIDE 0.9% 1,000 ML IV SCH ×2 (00:44→15:36)
[2016-05-31 06:15] LABS: Basophils # 0.1 10*3/uL (0.0-0.2); Basophils % 0.4 % (0.0-0.8); Eosinophils # 0.1 10*3/uL (0.0-0.87); Hematocrit 29.7 VOL% (35.7-47.0); Hemoglobin 9.6 GM/DL (12.0-16.0); Immature Granulocytes Absolute 0.25 #; Lymphocytes % 8.4 % (21.3-54.2); Mean Corpuscular HGB Conc 32.3 GM/DL (32-36); Mean Corpuscular Hemoglobin 29 PG (27-34); Mean Corpuscular Volume 89.5 FL (87-102); Mean Platelet Volume 10.8 FL (9.6-12.0); Monocytes % 7.7 % (1.7-12.7); Neutrophils % 80.5 % (38.7-73.9); Platelet Count 299 T/CUMM (130-400); Red Blood Count 3.32 MC/CUMM (3.8-5.5); Red Cell Distribution Width 15.5 % (9.3-17.3); White Blood Count 12.4 T/CUMM (4-12)
[2016-05-31 06:47] LABS: Alanine Aminotransferase 9 U/L (13-56); Albumin 1.7 G/DL (3.4-5.0); Alkaline Phosphatase 49 U/L (45-117); Aspartate Amino Transferase 26 U/L (0-37); Bilirubin,Total < 0.39 MG/DL (0.2-1.0); Blood Urea Nitrogen 12 MG/DL (7-18); Calcium 7.3 MG/DL (8.5-10.1); Glucose 113 MG/DL (74-106); Osmolality,Calculated 281.3 MOS/KG (273-304); Potassium 4.7 MMOL/L (3.5-5.1); Sodium 141 MMOL/L (136-145); Total Protein 4.8 G/DL (6.4-8.3)
[2016-05-31] MEDS: ALBUMIN 25% 25 GM in PREMIX 1 EACH IV SCH ×3 (06:54→23:36)
[2016-05-31 07:47] LABS: Band Neutrophils 1 % (0-10); Hypochromasia 1+; Lymphocytes 6 % (20-55); Platelet Estimate Adequate; Segmented Neutrophils 90 % (50-85); Spherocytes Few; Total Cells Counted 100
--- NOTE | 2016-05-31 07:53 | Event Note ---
She feels well. She denies abdominal pain. She is tolerating by mouth. Her abdomen is nontender and nondistended and her incision looks good. We will remove her skin clips and Steri-Stripped her wound.
[2016-05-31] MEDS: METOPROLOL TARTRATE 100 MG TABLET PO SCH ×2 (08:49→20:02)
[2016-05-31] MEDS: MEGESTROL 400 MG/10 ML UDCUP PO SCH ×2 (08:50→20:00)
[2016-05-31] MEDS: PANTOPRAZOLE 40 MG VIAL IV SCH (08:52)
[2016-05-31] MEDS: METOPROLOL TARTRATE 25 MG TABLET PO SCH ×2 (08:55→20:02)
[2016-05-31] MEDS: FAT EMULSION 20% IV SCH (15:19)
[2016-05-31] MEDS: ELECTROLYTE CONCENTRATE 40 ML, TRACE ELEMENTS (5) 1 ML, MULTIVITAMIN INJ 10 ML, POTASSI... IV SCH (18:07)
[2016-05-31] MEDS: cefTRIAXone 1,000 MG in SODIUM CHLORIDE 0.9% 100 ML IV SCH (20:01)
--- NOTE | 2016-05-31 21:19 | Internal Med Progress Note ---
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 She didn't like the food changes and stopped eating the food there. She has lost about 25 pounds since then. Her family had her worked up in [place] for cancer with uncertain findings. Requested records during clinic visit at [facility]. She came to clinic to [facility] in late April, then came back Wednesday of this week. She was admitted directly to hospital. She had lost five pounds in only a couple weeks. However, after receiving results of current CT, this case is surgical. Dr. Gunn, III was consulted to further evaluate. Surgery reveals cancer with mets (adenocarcinoma) of uncertain etiology. Discussed with family. Surgery resulted in debulking the cancer as a palliative measure. She did well with surgery. Postsurgical intubation/vent support in ICU. Wednesday, she continues to improve post surgically, but still not eating well. Will discontinue Periactin and start Megace. Starting albumin. Pancreatic cancer. Will send to [facility] next week. Wednesday, Reyce helping appetite Exam (Progress Note) - Constitutional Vitals: Period Temp Pulse Resp BP Sys/Timmons Pulse Ox Last 24 Hr 98.5 F-100.0 F 98-116 16-18 90-122/54-71 97-100 Exam: General appearance: no acute distress; awake and alert - Respiratory Respiratory exam: Present: clear to auscultation bilaterally - Cardiovascular Cardiovascular exam: Present: tachycardia - GI/Abdominal GI/Abdominal exam: Present: surgical bandages in place; NG tube - Extremities Exam Extremities exam: Absent: edema - Skin Skin exam: Present: warm, dry Vitals reviewed. Results - Labs CBC & BMP: 05/31/16 05:27 05/31/16 05:27 Quality Measures - VTE Contraindication to Pharmacological VTE Prophylaxis: High Risk of Bleeding
[2016-06-01] MEDS: metroNIDAZOLE INJ 500 MG in PREMIX 1 EACH IV SCH ×3 (00:46→18:55)
[2016-06-01] MEDS: MORPHINE 2 MG/1 ML SYRINGE IV PRN ×2 (01:59→18:51)
[2016-06-01 05:19] LABS: Basophils % 0.3 % (0.0-0.8); Eosinophils # 0.1 10*3/uL (0.0-0.87); Eosinophils % 1.2 % (0.00-10.9); Hematocrit 27.6 VOL% (35.7-47.0); Hemoglobin 8.4 GM/DL (12.0-16.0); Immature Granulocytes % 1.2 %; Immature Granulocytes Absolute 0.12 #; Lymphocytes # 1.1 10*3/uL (1.4-4.0); Lymphocytes % 10.9 % (21.3-54.2); Mean Corpuscular HGB Conc 30.4 GM/DL (32-36); Mean Corpuscular Hemoglobin 29 PG (27-34); Mean Corpuscular Volume 94.5 FL (87-102); Mean Platelet Volume 10.6 FL (9.6-12.0); Monocytes # 0.8 10*3/uL (0.11-0.8); Monocytes % 8.3 % (1.7-12.7); Neutrophils # 7.9 10*3/uL (1.4-7.4); Neutrophils % 78.1 % (38.7-73.9); Platelet Count 269 T/CUMM (130-400); Red Blood Count 2.92 MC/CUMM (3.8-5.5); Red Cell Distribution Width 15.4 % (9.3-17.3); White Blood Count 10.1 T/CUMM (4-12)
[2016-06-01 05:51] LABS: Alanine Aminotransferase < 6 U/L (13-56); Albumin 2.9 G/DL (3.4-5.0); Alkaline Phosphatase 41 U/L (45-117); Aspartate Amino Transferase 21 U/L (0-37); Blood Urea Nitrogen 10 MG/DL (7-18); Calcium 8.3 MG/DL (8.5-10.1); Glucose 101 MG/DL (74-106); Potassium 4.7 MMOL/L (3.5-5.1); Sodium 143 MMOL/L (136-145); Total Protein 5.2 G/DL (6.4-8.3)
[2016-06-01 05:52] LABS: Magnesium 2.1 MG/DL (1.8-2.4)
[2016-06-01] MEDS: ALBUMIN 25% 25 GM in PREMIX 1 EACH IV SCH ×3 (07:39→23:18)
--- NOTE | 2016-06-01 07:51 | Event Note ---
She feels well this morning. After our removed her skin clips yesterday she had an ascites leak which I oversewed and we have had no further drainage from her abdominal wound. Her kitty are out and her wound is Steri-Stripped. I see no signs of infection. Her fascia felt like it was intact that she was probably leaking ascites between the abdominal fascial closure sutures. This is likely from her metastatic peritoneal carcinomatosis.
--- NOTE | 2016-06-01 08:21 | Oncology Progress Note ---
Oncology Subjective PN Interval history: I will be discussing chemotherapy with Ms. Schneider. I would initially plan to use Gemzar as a single agent. She needs to recover from surgery and I do not anticipate chemotherapy anytime soon. In addition, she is exceedingly frail and this may cause us to delay chemotherapy further. Exam - Constitutional Vitals: Period Temp Pulse Resp BP Sys/Timmons Pulse Ox Last 24 Hr 99.2 F-100.3 F 98-117 16-18 109-122/51-71 98-100 Results - Labs CBC & BMP: 06/01/16 04:35 06/01/16 04:35 Quality Measures - VTE Contraindication to Pharmacological VTE Prophylaxis: High Risk of Bleeding
[2016-06-01] MEDS: METOPROLOL TARTRATE 100 MG TABLET PO SCH ×2 (10:00→21:23)
[2016-06-01] MEDS: PANTOPRAZOLE 40 MG VIAL IV SCH (10:03)
[2016-06-01] MEDS: MEGESTROL 400 MG/10 ML UDCUP PO SCH ×2 (10:03→21:23)
[2016-06-01] MEDS ORDERED: METOPROLOL TARTRATE 50 MG TABLET PO SCH (12:00)
[2016-06-01] MEDS: METOPROLOL TARTRATE 50 MG TABLET PO SCH ×2 (12:20→21:24)
[2016-06-01] MEDS: METOPROLOL TARTRATE 25 MG TABLET PO SCH (12:20)
--- NOTE | 2016-06-01 12:48 | Internal Med Progress Note ---
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 She didn't like the food changes and stopped eating the food there. She has lost about 25 pounds since then. Her family had her worked up in [place] for cancer with uncertain findings. Requested records during clinic visit at [facility]. She came to clinic to [facility] in late April, then came back Wednesday of this week. She was admitted directly to hospital. She had lost five pounds in only a couple weeks. However, after receiving results of current CT, this case is surgical. Dr. Gunn, III was consulted to further evaluate. Surgery reveals cancer with mets (adenocarcinoma) of uncertain etiology. Discussed with family. Surgery resulted in debulking the cancer as a palliative measure. She did well with surgery. Postsurgical intubation/vent support in ICU. Wednesday, she continues to improve post surgically, but still not eating well. Will discontinue Periactin and start Megace. Starting albumin. Pancreatic cancer. Will send to [facility] next week. Wednesday, Megace helping appetite Wednesday, she is eating better. Soon to go to [facility] when bed is available. Still tachycardic and increasing Metoprolol dose. She needs another unit pRBC transfusion. Dropping hemoglobin Exam (Progress Note) - Constitutional Vitals: Period Temp Pulse Resp BP Sys/Timmons Pulse Ox Last 24 Hr 99.2 F-100.6 F 98-117 16-18 109-122/51-71 98-100 Exam: General appearance: no acute distress; awake and alert - Respiratory Respiratory exam: Present: clear to auscultation bilaterally - Cardiovascular Cardiovascular exam: Present: tachycardia - GI/Abdominal GI/Abdominal exam: Present: surgical bandages in place; NG tube - Extremities Exam Extremities exam: Absent: edema - Skin Skin exam: Present: warm, dry Vitals reviewed. Results - Labs CBC & BMP: 06/01/16 04:35 06/01/16 04:35 Quality Measures - VTE Contraindication to Pharmacological VTE Prophylaxis: High Risk of Bleeding
[2016-06-01] MEDS: SODIUM CHLORIDE 0.9% 1,000 ML IV SCH ×2 (12:49→17:30)
[2016-06-01] MEDS: COLLAGENASE OINT 30 GM TUBE TOP SCH (12:51)
[2016-06-01] MEDS: FAT EMULSION 20% IV SCH (16:16)
[2016-06-01] MEDS: ELECTROLYTE CONCENTRATE 40 ML, TRACE ELEMENTS (5) 1 ML, MULTIVITAMIN INJ 10 ML, POTASSI... IV SCH (19:04)
[2016-06-01] MEDS: cefTRIAXone 1,000 MG in SODIUM CHLORIDE 0.9% 100 ML IV SCH (21:25)
[2016-06-01 23:37] LABS: Hematocrit 29.9 VOL% (35.7-47.0); Hemoglobin 9.5 GM/DL (12.0-16.0)
[2016-06-02] MEDS: metroNIDAZOLE INJ 500 MG in PREMIX 1 EACH IV SCH ×3 (00:49→18:20)
[2016-06-02 06:11] LABS: Basophils % 0.4 % (0.0-0.8); Eosinophils # 0.1 10*3/uL (0.0-0.87); Eosinophils % 0.7 % (0.00-10.9); Hematocrit 29.2 VOL% (35.7-47.0); Hemoglobin 9.2 GM/DL (12.0-16.0); Immature Granulocytes % 1.2 %; Immature Granulocytes Absolute 0.13 #; Lymphocytes # 0.7 10*3/uL (1.4-4.0); Lymphocytes % 6.7 % (21.3-54.2); Mean Corpuscular HGB Conc 31.5 GM/DL (32-36); Mean Corpuscular Hemoglobin 29 PG (27-34); Mean Corpuscular Volume 90.7 FL (87-102); Mean Platelet Volume 10.3 FL (9.6-12.0); Monocytes # 0.9 10*3/uL (0.11-0.8); Monocytes % 8.7 % (1.7-12.7); Neutrophils # 8.6 10*3/uL (1.4-7.4); Neutrophils % 82.3 % (38.7-73.9); Platelet Count 333 T/CUMM (130-400); Red Blood Count 3.22 MC/CUMM (3.8-5.5); Red Cell Distribution Width 15.3 % (9.3-17.3); White Blood Count 10.4 T/CUMM (4-12)
[2016-06-02] MEDS: ALBUMIN 25% 25 GM in PREMIX 1 EACH IV SCH ×2 (06:11→15:04)
[2016-06-02 06:38] LABS: Alanine Aminotransferase < 9 U/L (13-56); Albumin 3.7 G/DL (3.4-5.0); Alkaline Phosphatase 48 U/L (45-117); Aspartate Amino Transferase 19 U/L (0-37); Blood Urea Nitrogen 12 MG/DL (7-18); Calcium 8.3 MG/DL (8.5-10.1); Glucose 132 MG/DL (74-106); Osmolality,Calculated 278.5 MOS/KG (273-304); Potassium 4.5 MMOL/L (3.5-5.1); Sodium 139 MMOL/L (136-145); Total Protein 6.2 G/DL (6.4-8.3)
[2016-06-02] MEDS: COLLAGENASE OINT 30 GM TUBE TOP SCH (07:50)
[2016-06-02] MEDS: METOPROLOL TARTRATE 100 MG TABLET PO SCH (09:00)
[2016-06-02] MEDS: METOPROLOL TARTRATE 50 MG TABLET PO SCH (09:00)
[2016-06-02] MEDS: MEGESTROL 400 MG/10 ML UDCUP PO SCH (09:01)
[2016-06-02] MEDS: PANTOPRAZOLE 40 MG VIAL IV SCH (09:03)
[2016-06-02] MEDS: SODIUM CHLORIDE 0.9% 1,000 ML IV SCH (12:34)
[2016-06-02] MEDS: FAT EMULSION 20% IV SCH (15:04)
--- NOTE | 2016-06-02 18:45 | Discharge Summary ---
Hospital Course - Hospital Course Hospital Course: Ms. 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 She didn't like the food changes and stopped eating the food there. She has lost about 25 pounds since then. Her family had her worked up in [place] for cancer with uncertain findings. Requested records during clinic visit at [facility]. She came to clinic to [facility] in late April, then came back Wednesday of this week. She was admitted directly to hospital. She had lost five pounds in only a couple weeks. CT abdomen/pelvis indicated bowel obstruction. She required surgery to provide colostomy. Necrotic portion of stomach removed, and she came through surgery and post op very well. Metastatic disease noted in surgery. She has pancreatic cancer with mets and followed by Dr. Bryan. She is interested in chemo if she is strong enough. She is on TPN for nutritional support, until the Megace sufficienctly improves appetite to be able to stop TPN. Siinus tachycardia responsive to Metoprolol and will increase Metoprolol at discharge. Her blood pressure has been improving with fluids and albumin. She came in hypotensive and dehydrated. Improved over the last few days. Blood cultures negative after 5 days. Sending her to [facility]. She will continue TPN until appetite sufficiently improves. Megace is helping better than Periactin. Diagnosis - Discharge Diagnosis (1) Nutritional deficiency Status: Chronic (2) Duodenal obstruction Status: Chronic (3) Status post colostomy Status: Chronic (4) Metastatic adenocarcinoma Status: Acute (5) Sinus tachycardia Status: Acute (6) Pancreatic cancer Status: Acute (7) Anorexia Status: Chronic (8) Anemia Status: Acute Specialty Discharge - Follow Up or Referrals Follow up with: Kayden Gunn III., MD [Physician] - (Notify office with room number on arrival) Luis Miguel Bryan MD [Physician] - 07/06/16 11:15 am (lab work with dr. bryan on july 06 9:15 then you will see the doctor) Discharge Plan - Discharge Data Disposition: Disch/Xfer to [facility] Condition at Discharge: Stable Discharge Diet: regular diet Activity: as per physical therapy, increase activity as tolerated - Discharge Medications New Collagenase Oint [Santyl Oint] 1 applic TOP DAILY applic Magnesium Sulf Inj [Magnesium Sulfate Inj] 2 gm IV .Q24H vial Potassium Chloride Rubén 10 meq IV .PER PROTOCOL PRN #0 PRN Reason: Per Protocol Skin Healing Oint (Aquaphor) [Aquaphor] 1 applic TOP PRN PRN #0 applic PRN Reason: Dry Skin Dextrose 50% [D50] 25 gm IV PRN PRN #0 vial PRN Reason: Hypoglycemia with IV access Electrolyte Concentrate [Nutrilyte II] 40 ml IV .Q24H vial Glucagon 1 mg IM PRN PRN #0 vial PRN Reason: Hypoglycemia w/o IV access Heparin Lock Flush 50 units IV Q12H syringe Megestrol Liquid [Megace Liquid] 400 mg PO BID #60 Metoprolol Tartrate Tab [Lopressor Tab] 200 mg PO BID #60 tablet Multivitamin Inj 10 ml IV .Q24H vial Ondansetron Inj [Zofran Inj] 4 mg IV Q4H PRN #0 vial PRN Reason: Nausea/Vomiting Potassium Chloride Inj [KCl Inj] 20 meq IV .Q24H vial Potassium Chloride Rubén 20 meq IV .PER PROTOCOL PRN #0 PRN Reason: Per Protocol Potassium Phosphate [Poassium Phosphate Inj] 30 mmol IV .Q24H vial Promethazine Inj [Phenergan Inj] 25 mg IM Q4H PRN #0 vial PRN Reason: Nausea/Vomiting cefTRIAXone [Rocephin] 1,000 mg IV Q24H vial metroNIDAZOLE INJ [Flagyl Inj] 250 mg IV Q8H #0 Discontinued Potassium Chloride Cap/Tab [K Dur] 20 meq PO DAILY #7 tablet Ciprofloxacin Tab [Cipro Tab] 500 mg PO BID #14 tablet - Follow Up or Referral Follow Up: Kayden Gunn III., MD [Physician] - (Notify office with room number on arrival) Luis Miguel Bryan MD [Physician] - 07/06/16 11:15 am (lab work with dr. bryan on july 06 9:15 then you will see the doctor) Ronda Negron DO [Primary Care Provider] - - Forms/Instructions Instructions: Colostomy Care (DC), Pancreatic Cancer (DC), Colostomy Creation ( DC), Anemia (DC) Additional Discharge Instructions: Follow up with Dr. Luis A III and Dr. Bryan per appointments set. Follow up with Dr. Karen Negron in clinic within 1-2 weeks of discharge from [facility]. Exam - Constitutional Vitals: Period Temp Pulse Resp BP Sys/Timmons Pulse Ox Last 24 Hr 98.7 F-100.0 F 102-114 18-20 114-125/67-75 97-100 Exam: General appearance: no acute distress; awake and alert - Respiratory Respiratory exam: Present: clear to auscultation bilaterally - Cardiovascular Cardiovascular exam: Present: tachycardia - GI/Abdominal GI/Abdominal exam: nontender - Extremities Exam Extremities exam: Absent: edema - Skin Skin exam: Present: warm, dry Vitals reviewed. Discharge Results Procedures and tests throughout hospitalization: Pending Orders 06/03/16 04:00 CBC [Comp Blood Count Auto Diff] IN AM Comprehensive Metabolic Panel IN AM 06/04/16 04:00 CBC [Comp Blood Count Auto Diff] IN AM Comprehensive Metabolic Panel IN AM Magnesium MOTH Phosphorous MOTH Triglycerides MOTH 06/05/16 04:00 CBC [Comp Blood Count Auto Diff] IN AM Comprehensive Metabolic Panel IN AM Labs on day of discharge: Labs from last 24 hours 06/02/16 06/02/16 06/01/16 05:54 05:54 22:41 WBC 10.4 RBC 3.22 L Hgb 9.2 L 9.5 L Hct 29.2 L 29.9 L MCV 90.7 MCH 29 MCHC 31.5 L RDW 15.3 Plt Count 333 D MPV 10.3 Neut % (Auto) 82.3 H Lymph % (Auto) 6.7 L [place] % (Auto) 8.7 Eos % (Auto) 0.7 Baso % (Auto) 0.4 Neut # (Auto) 8.6 H Lymph # (Auto) 0.7 L [place] # (Auto) 0.9 H Eos # (Auto) 0.1 Baso # (Auto) 0.0 Immature Gran % 1.2 Nucleated RBC % 0.0 Immature Gran # 0.13 Nucleated RBCs # 0.00 Sodium 139 Potassium 4.5 Chloride 108 H Carbon Dioxide 21 Anion Gap 14.5 BUN 12 Creatinine 0.30 L GFR Calculation 135 BUN/Creatinine Ratio 40.00 H Glucose 132 H Calculated Osmolality 278.5 Calcium 8.3 L Total Bilirubin 0.60 AST 19 ALT < 9 L Alkaline Phosphatase 48 Total Protein 6.2 L Albumin 3.7 Globulin 2.5 Albumin/Globulin Ratio 1.4 DS: Provider Date of admission: 05/18/16 16:50 Primary care physician: Ronda Negron DO Attending physician on admission: Ronda Negron DO Consults: 05/18/16 17:47 Consult to Dietitian [CONS] Routine Reason for Dietitian: Dietary Consult Consult Comment: protein requirements; needs weight gain 05/18/16 17:55 Consult to Physician [CONS] Routine Comment: GI gas/bloating and anorexia Consulting Provider: Moses Oshea Consulting Provider Notified: Yes When should Consulting Provider be notified: Now Consult to Specialist Group: Gastroenterology When should Consulting Provider be notified: Now Person Notified: RAMYA Date Notified: 05/19/16 Time Notified: 10:00 05/19/16 02:35 Consult to Dietitian [CONS] Routine Reason for Dietitian: Diet Recommendations Consult Comment: see labs from [facility] on 4E 05/19/16 08:17 Consult to Physician [CONS] Routine Comment: ct results/abdominal and biliary distention Consulting Provider: Kayden Gunn III. Consulting Provider Notified: Yes When should Consulting Provider be notified: Now Consult to Specialist Group: Surgery When should Consulting Provider be notified: Now Person Notified: BRAYDEN Date Notified: 05/19/16 Time Notified: 09:45 05/20/16 01:01 Consult to Dietitian [CONS] Routine Reason for Dietitian: Diet Recommendations Consult Comment: TPN nutritional support 05/20/16 08:50 Consult to Physician [CONS] Routine Comment: elevated CA 19-9 Consulting Provider: Luis Miguel Bryan Consulting Provider Notified: Yes When should Consulting Provider be notified: Now Consult to Specialist Group: Oncology When should Consulting Provider be notified: Now Person Notified: CATHY Date Notified: 05/20/16 Time Notified: 12:12 05/20/16 15:35 Consult to Pharmacy [CONS] Routine Reason for Pharmacy Consult: Adjust Meds Renal Funct 05/20/16 16:03 Consult to Physician [CONS] Routine Comment: manage vent Consulting Provider: Moses Bundy Consult to Specialist Group: Pulmonology When should Consulting Provider be notified: Now Person Notified: dr bundy Date Notified: 05/20/16 Time Notified: 16:32 Consult Notification Comment: notified of consult, review lab and vent settings 05/21/16 21:32 Consult to Physician [CONS] Routine Comment: tachycardia Consulting Provider: Sebastián Rodriguez Consulting Provider Notified: Yes Consult to Specialist Group: Cardiology Person Notified: GONZALO Date Notified: 05/22/16 Time Notified: 08:50 05/24/16 11:15 Consult to Physical Therapy [CONS] Routine Reason for Physical Therapy: Evaluate and Treat Start Therapy: Tomorrow Consult Comment: Out of bed in chair and ambulate some in the room twice daily 05/28/16 02:15 Consult to Dietitian [CONS] Routine Reason for Dietitian: Diet Recommendations Consult Comment: please address low calcium 05/29/16 14:02 Consult to Case Mgmt/Social Srvs [CONS] Routine Reason for Case Mgmt/Social Srvs: Discharge Planning Discharging clinician: Ronda Negron DO Expected date of discharge: 06/02/16
[2016-06-02] MEDS ORDERED: METOPROLOL TARTRATE 100 MG TABLET PO SCH (19:08)
[2016-06-02] MEDS: ELECTROLYTE CONCENTRATE 40 ML, TRACE ELEMENTS (5) 1 ML, MULTIVITAMIN INJ 10 ML, POTASSI... IV SCH (20:08)
[2016-06-02 20:48] VITALS: BP 127/75
== END 2016-06-02 21:20 | DRG 326 ==
LOC: N.4E 16:50 → N.ICU 05-20 16:02 → N.3E 05-24 07:54
PROVIDERS: ADMIT Internal Medicine; ATTEND Internal Medicine